=== PATIENT | female | born 1970 | race Caucasian/White ===

== ENCOUNTER 2016-06-07 00:17 | Emergency (ER) | payer MEDICARE, OTHER ==
--- NOTE | 2016-06-07 02:26 | ED ---
General Adult HPI - General Chief complaint: Abdominal Pain Stated complaint: Blood in Stool Time Seen by Provider: 06/07/16 01:19 Source: patient, RN notes reviewed Mode of arrival: ambulatory Limitations: no limitations - History of Present Illness Initial comments: This is a 46-year-old female presents with rectal bleeding that started tonight. Patient states she sometimes just has bright red blood that comes out of the rectum. Patient states is never happened to her before. Patient states she has some suprapubic abdominal pain but this is mild. Patient states her abdominal pain is relieved after she has a bowel movement. Patient states her bowel movements have been normal for her and she denies any diarrhea, nausea or vomiting. Patient denies any fever/chills, cough, congestion, shortness of breath. Patient denies any recent chest pain, abdominal pain, back pain, numbness, tingling, hematuria, headache, or visual changes, or any other complaints. - Related Data Home Medications Medication Instructions Recorded Confirmed Pantoprazole Sodium 40 mg PO QAM 06/30/14 06/07/16 levETIRAcetam [Keppra] 1,000 mg PO Q12HR 06/30/14 06/07/16 Venlafaxine HCl [Effexor XR] 75 mg PO QAM 09/04/15 06/07/16 Previous Rx's Medication Instructions Recorded Albuterol Inhaler [Ventolin Hfa 1 - 2 puff INHALATION Q4-6H PRN #1 01/19/16 Inhaler] inhaler Ciprofloxacin HCl [Cipro] 250 mg PO Q12HR 10 Days 06/07/16 metroNIDAZOLE [Flagyl] 500 mg PO TID 10 Days 06/07/16 Allergies Allergy/AdvReac Type Severity Reaction Status Date / Time Penicillins Allergy Severe Rash/Hives Verified 06/07/16 00:23 Review of Systems ROS Statement: Those systems with pertinent positive or pertinent negative responses have been documented in the HPI. ROS Other: All systems not noted in ROS Statement are negative. Past Medical History Past Medical History: Osteoarthritis (OA), Seizure Disorder, Sleep Apnea/CPAP/ BIPAP Additional Past Medical History / Comment(s): Last seizure 09/18/09, MERVIN has CPAP but has not worn in about 1 1/2 yrs due to needing a new filter, SSS requiring pacemaker, arthritis in back-back pain, recent L groin boil with lancing and packing. History of Any Multi-Drug Resistant Organisms: None Reported Past Surgical History: Adenoidectomy, Section, Pacemaker, Tonsillectomy , Tubal Ligation Additional Past Surgical History / Comment(s): 07/13/06 tilt table test, D&C, C- Sections x 4, pilonidial cyst removed. Past Anesthesia/Blood Transfusion Reactions: No Reported Reaction Type of Cardiac Device: Permanent Pacemaker Device Placement Date:: 07/14/06 Past Psychological History: Depression Additional Psychological History / Comment(s): Pt resides alone. She is independent. She drives. Smoking Status: Current every day smoker Past Alcohol Use History: None Reported Additional Past Alcohol Use History / Comment(s): Pt states she started smoking in 1998 and is less than a ppd smoker. Past Drug Use History: None Reported - Past Family History Father Family Medical History: Coronary Artery Disease (CAD) Additional Family Medical History / Comment(s): Father had heart problems and a pacemaker. He at age 77yrs. Mother Family Medical History: Diabetes Mellitus Additional Family Medical History / Comment(s): Mother is 73 yrs old General Exam - General Exam Comments Initial Comments: General: The patient is awake and alert, in no distress, and does not appear acutely ill. Eye: Pupils are equal, round and reactive to light, extra-ocular movements are intact. No nystagmus. There is normal conjunctiva bilaterally. No signs of icterus. Ears: TMs pink and pearly with intact cone of light bilaterally. Normal external ear canals Nose: Nasal turbinates pink and moist Mouth and throat: There are moist mucous membranes and no oral lesions. Neck: The neck is supple, there is no tenderness or JVD. Cardiovascular: There is a regular rate and rhythm. No murmur, rub or gallop is appreciated. Respiratory: Lungs are clear to auscultation, respirations are non-labored, breath sounds are equal. No wheezes, stridor, rales, or rhonchi. Gastrointestinal: Soft, non-distended, non-tender abdomen without masses or organomegaly noted. There is no rebound or guarding present. No CVA tenderness. Bowel sounds are unremarkable. Rectal: External hemorrhoids present that are tender. No stool in the rectal vault. No blood noted in the rectal vault. No active bleeding. Musculoskeletal: Normal ROM, no tenderness. Strength 5/5. Sensation intact. Radial Pulses equal bilaterally 2+. Neurological: A&O x 3. CN II-XII intact, There are no obvious motor or sensory deficits. Coordination appears grossly intact. Speech is normal. Skin: Skin is warm and dry and no rashes or lesions are noted. Psychiatric: Cooperative, appropriate mood & affect, normal judgment. Limitations: no limitations Course Vital Signs 06/07/16 06/07/16 06/07/16 00:21 02:33 05:04 Temperature 98.1 F 99.7 F H 97 F L Pulse Rate 79 64 78 Respiratory 18 16 16 Rate Blood Pressure 134/93 116/60 119/71 O2 Sat by Pulse 94 L 99 97 Oximetry Medical Decision Making - Medical Decision Making Is a 46-year-old female presents with chief complaint rectal bleeding. On physical exam external hemorrhoids are noted the rectum. There is no blood in the rectal vault, there is no stool in the rectal vault. Patient has pain with rectal exam. Abdomen is soft, nontender nondistended. No guarding or rigidity. Labs were done and reviewed. Elevated white count noted. Patient has a low-grade fever. Occult blood was positive. Upon reexamination patient developed mild generalized tenderness to the abdomen. At this time a CT with contrast was done and reviewed showing: #1 suspected diffuse colitis changes involving transverse, descending and rectosigmoid colon with possible ulcerative colitis changes. Clinical correlation is recommended. #2 stable 3.4 cm left adrenal mass probably related to adrenal adenoma. #3 benign-appearing cysts and liver. #4 contracted gallbladder. Discussed results patient. Discussed the patient will be on a course of antibiotics. I discussed Tylenol or Motrin as needed for any pain. I discussed return parameters. Discussed that patient should follow-up with gastroenterology.Discussed that patient should follow up with PCP in one to 2 days or return to the [facility] for any worsening symptoms or for any further concerns. Patient was receptive to this plan and patient will be discharged home. I discussed his case with attending physician Dr. Wiley who agrees the plan as stated above. - Lab Data Result diagrams: 06/07/16 02:30 06/07/16 02:30 Lab Results 06/07/16 06/07/16 06/07/16 Range/Units 02:19 02:30 02:30 WBC 14.7 H (3.8-10.6) k/uL RBC 5.34 (3.80-5.40) m/uL Hgb 11.9 (11.4-16.0) gm/dL Hct 39.0 (34.0-46.0) % MCV 73.1 L (80.0-100.0) fL MCH 22.2 L (25.0-35.0) pg MCHC 30.4 L (31.0-37.0) g/dL RDW 15.6 H (11.5-15.5) % Plt Count 289 (150-450) k/uL Neutrophils % 76 % Lymphocytes % 16 % Monocytes % 5 % Eosinophils % 2 % Basophils % 0 % Neutrophils # 11.1 H (1.3-7.7) k/uL Lymphocytes # 2.4 (1.0-4.8) k/uL Monocytes # 0.7 (0-1.0) k/uL Eosinophils # 0.2 (0-0.7) k/uL Basophils # 0.0 (0-0.2) k/uL Hypochromasia Marked Microcytosis Slight Sodium 143 (137-145) mmol/L Potassium 3.7 (3.5-5.1) mmol/L Chloride 107 (98-107) mmol/L Carbon Dioxide 23 (22-30) mmol/L Anion Gap 13 mmol/L BUN 12 (7-17) mg/dL Creatinine 0.60 (0.52-1.04) mg/dL Est GFR (MDRD) Af Amer >60 (>60 ml/min/1.73 sqM) Est GFR (MDRD) Non-Af >60 (>60 ml/min/1.73 sqM) Glucose 116 H (74-99) mg/dL Calcium 10.3 H (8.4-10.2) mg/dL Total Bilirubin 0.2 (0.2-1.3) mg/dL AST 23 (14-36) U/L ALT 26 (9-52) U/L Alkaline Phosphatase 108 (38-126) U/L Total Protein 7.5 (6.3-8.2) g/dL Albumin 4.2 (3.5-5.0) g/dL Urine Color Urine Appearance (Clear) Urine pH (5.0-8.0) Ur Specific Lawrence (1.001-1.035) Urine Protein (Negative) Urine Glucose (UA) (Negative) Urine Ketones (Negative) Urine Blood (Negative) Urine Nitrate (Negative) Urine Bilirubin (Negative) Urine Urobilinogen (<2.0) mg/dL Ur Leukocyte Esterase (Negative) Urine RBC (0-5) /hpf Urine WBC (0-5) /hpf Ur Squamous Epith Cells (0-4) /hpf Urine Mucus (None) /hpf Stool Occult Blood Positive H (Negative) 06/07/16 Range/Units 02:30 WBC (3.8-10.6) k/uL RBC (3.80-5.40) m/uL Hgb (11.4-16.0) gm/dL Hct (34.0-46.0) % MCV (80.0-100.0) fL MCH (25.0-35.0) pg MCHC (31.0-37.0) g/dL RDW (11.5-15.5) % Plt Count (150-450) k/uL Neutrophils % % Lymphocytes % % Monocytes % % Eosinophils % % Basophils % % Neutrophils # (1.3-7.7) k/uL Lymphocytes # (1.0-4.8) k/uL Monocytes # (0-1.0) k/uL Eosinophils # (0-0.7) k/uL Basophils # (0-0.2) k/uL Hypochromasia Microcytosis Sodium (137-145) mmol/L Potassium (3.5-5.1) mmol/L Chloride (98-107) mmol/L Carbon Dioxide (22-30) mmol/L Anion Gap mmol/L BUN (7-17) mg/dL Creatinine (0.52-1.04) mg/dL Est GFR (MDRD) Af Amer (>60 ml/min/1.73 sqM) Est GFR (MDRD) Non-Af (>60 ml/min/1.73 sqM) Glucose (74-99) mg/dL Calcium (8.4-10.2) mg/dL Total Bilirubin (0.2-1.3) mg/dL AST (14-36) U/L ALT (9-52) U/L Alkaline Phosphatase (38-126) U/L Total Protein (6.3-8.2) g/dL Albumin (3.5-5.0) g/dL Urine Color Yellow Urine Appearance Cloudy H (Clear) Urine pH 5.5 (5.0-8.0) Ur Specific Lawrence 1.021 (1.001-1.035) Urine Protein Negative (Negative) Urine Glucose (UA) Negative (Negative) Urine Ketones Negative (Negative) Urine Blood Negative (Negative) Urine Nitrate Negative (Negative) Urine Bilirubin Negative (Negative) Urine Urobilinogen <2.0 (<2.0) mg/dL Ur Leukocyte Esterase Negative (Negative) Urine RBC 3 (0-5) /hpf Urine WBC 4 (0-5) /hpf Ur Squamous Epith Cells 3 (0-4) /hpf Urine Mucus Few H (None) /hpf Stool Occult Blood (Negative) Disposition Clinical Impression: Colitis, GI bleed Disposition: HOME SELF-CARE Condition: Good Instructions: Colitis (ED) Additional Instructions: Please use medication as discussed. Please finish entire course of antibiotics. Please follow-up with gastroenterology. Please follow-up with family doctor in the next 2 days of symptoms have not improved. Please return to emergency room if the symptoms increase or worsen or for any other concerns. Prescriptions: Ciprofloxacin HCl [Cipro] 250 mg PO Q12HR 10 Days metroNIDAZOLE [Flagyl] 500 mg PO TID 10 Days Referrals: April Mccullough MD [Primary Care Provider] - 1-2 days Josiah Wang MD [STAFF PHYSICIAN] - 1-2 days Time of Disposition: 04:41
[2016-06-07 02:35] VITALS: RESP 16
[2016-06-07 02:42] LABS: Basophils % (A) 0 %; CH 21.9; Eosinophils # (A) 0.2 k/uL (0-0.7); Eosinophils % (A) 2 %; HDW 3.25; HGB 11.9 gm/dL (11.4-16.0); Hypochromasia Marked; Luc % (Auto) 1; Lymphocytes # (A) 2.4 k/uL (1.0-4.8); Lymphocytes % (A) 16 %; MCH 22.2 pg (25.0-35.0); MCHC 30.4 g/dL (31.0-37.0); MCV 73.1 fL (80.0-100.0); Mean Platelet Volume 6.5; Microcytosis Slight; Monocytes # (A) 0.7 k/uL (0-1.0); Monocytes % (A) 5 %; Neutrophils # (A) 11.1 k/uL (1.3-7.7); Neutrophils % (A) 76 %; RBC 5.34 m/uL (3.80-5.40); RDW 15.6 % (11.5-15.5); WBC 14.7 k/uL (3.8-10.6); WBC (Perox) 15.05
[2016-06-07 02:46] LABS: Appearance,Urine Cloudy (Clear); Bilirubin,Urine Negative (Negative); Glucose,Urine (UA) Negative (Negative); Ketones,Urine Negative (Negative); Leukocyte Esterase,Urine Negative (Negative); Mucus,Urine Few /hpf; Nitrite,Urine Negative (Negative); PH, Urine 5.5 (5.0-8.0); Particle Count 3491; Protein,Urine Negative (Negative); RBC,Urine 3 /hpf (0-5); Specific Gravity,Urine 1.021 (1.001-1.035); Squamous Epithelial Cell,Urine 3 /hpf (0-4); UA Billing (MACRO vs. MICRO) MICRO; Urobilinogen,Urine <2.0 mg/dL (<2.0); WBC,Urine 4 /hpf (0-5)
[2016-06-07 02:51] LABS: ALT 26 U/L (9-52); AST 23 U/L (14-36); Alkaline Phosphatase 108 U/L (38-126); Anion Gap 13 mmol/L; Blood Urea Nitrogen 12 mg/dL (7-17); Calcium 10.3 mg/dL (8.4-10.2); Carbon Dioxide 23 mmol/L (22-30); Chloride 107 mmol/L (98-107); Glucose 116 mg/dL (74-99); Non-African American GFR(MDRD) >60 (>60 ml/min/1.73 sqM); Potassium 3.7 mmol/L (3.5-5.1); Sodium 143 mmol/L (137-145); Total Bilirubin 0.2 mg/dL (0.2-1.3); Total Protein 7.5 g/dL (6.3-8.2)
[2016-06-07] MEDS ORDERED: RX INFO: IV CONTRAST WAS GIVEN 1 EACH MISC MISCELLANE PRN (03:28)
--- NOTE | 2016-06-07 04:24 | CT ---
EXAMINATION TYPE: CT abdomen pelvis w con DATE OF EXAM: 06/07/2016 3:55 AM COMPARISON: 03/12/2016. HISTORY: blood in stool, history of left adrenal mass CT DLP: 1055.70 mGycm Automated exposure control for dose reduction was used. TECHNIQUE: Helical acquisition of images was performed from the lung bases through the pelvis. CONTRAST: Performed without Oral Contrast and with IV Contrast, patient injected with 100 mL of Omnipaque 300. FINDINGS: LUNG BASES: Mild left basilar lung atelectasis and scarring is suggested. LIVER/GB: Benign-appearing cysts are noted in the liver one of the cyst measuring 11 mm in the axial image 13. Gallbladder is contracted. PANCREAS: No significant abnormality is seen. SPLEEN: No significant abnormality is seen. ADRENALS: Right adrenal gland appears unremarkable. There is stable 3.4 cm hypodense mass in the left adrenal gland most likely representing a benign adr enal adenoma. KIDNEYS: No significant abnormality is seen. RETROPERITONEAL ADENOPATHY: None visualized REPRODUCTIVE ORGANS: Uterus is prominent in size with thickened endometrium. Involuting cyst is noted in the right ovary measuring 1.8 cm in the axial image 64. URINARY BLADDER: No significant abnormality is seen. Urinary bladder is not well distended. PELVIC ADENOPATHY: None visualized. OSSEOUS STRUCTURES: No significant abnormality is seen. BOWEL: There is diffuse mucosal thickening in the rectosigmoid colon as seen in the axial image 67. The transverse and descending colon also showed diffuse mucosal wall thickening probably related to d iffuse colitis or ulcerative colitis changes. Cecum and ascending colon showed mild to moderate fecal material and contrast. OTHER: IMPRESSION: 1. SUSPECTED DIFFUSE COLITIS CHANGES INVOLVING TRANSVERSE, DESCENDING AND RECTOSIGMOID COLON WITH POS SIBLE ULCERATIVE COLITIS CHANGES. CLINICAL CORRELATION IS RECOMMENDED. 2. STABLE 3.4 CM LEFT ADRENAL MASS PROBABLY RELATED TO ADRENAL ADENOMA. 3. BENIGN-APPEARING CYSTS IN THE LIVER. 4. Contracted gallbladder.
[2016-06-07 05:04] VITALS: BP 119/71; PULSE 78; TEMP 97
== END 2016-06-07 05:04 | disposition home or self-care (01) ==
LOC: EC 00:17
DX: K52.9 Noninfective gastroenteritis and colitis, unspecified (principal); K64.4 Residual hemorrhoidal skin tags; G40.909 Epilepsy, unspecified, not intractable, without status epilepticus; F32.9 Major depressive disorder, single episode, unspecified; Z79.899 Other long term (current) drug therapy; Z88.0 Allergy status to penicillin; G47.30 Sleep apnea, unspecified; Z99.89 Dependence on other enabling machines and devices; Z95.0 Presence of cardiac pacemaker; F17.200 Nicotine dependence, unspecified, uncomplicated; E27.9 Disorder of adrenal gland, unspecified; K76.89 Other specified diseases of liver
CPT/HCPCS: 36415; 80053; 85025; 82272; 81001; 87086; 74177; 99284; Q9967

== ENCOUNTER → 2016-07-09 | Outpatient (CLI) | payer MEDICARE, OTHER ==
[2016-07-09 10:05] LABS: Anisocytosis Slight; Basophils # (A) 0.1 k/uL (0-0.2); Basophils % (A) 1 %; CH 22.2; CHCM 30.1; Eosinophils # (A) 0.1 k/uL (0-0.7); Eosinophils % (A) 1 %; HCT 39.1 % (34.0-46.0); HGB 11.8 gm/dL (11.4-16.0); Hypochromasia Marked; Luc # (Auto) 0.18; Luc % (Auto) 3; Lymphocytes # (A) 1.9 k/uL (1.0-4.8); Lymphocytes % (A) 27 %; MCH 22.4 pg (25.0-35.0); MCHC 30.2 g/dL (31.0-37.0); MCV 74.2 fL (80.0-100.0); Mean Platelet Volume 7.1; Microcytosis Moderate; Monocytes # (A) 0.3 k/uL (0-1.0); Monocytes % (A) 5 %; Neutrophils # (A) 4.5 k/uL (1.3-7.7); Neutrophils % (A) 64 %; RBC 5.27 m/uL (3.80-5.40); RDW 17.2 % (11.5-15.5); WBC (Perox) 7.75
[2016-07-09 10:14] LABS: ALT 23 U/L (9-52); AST 20 U/L (14-36); Alkaline Phosphatase 92 U/L (38-126); Anion Gap 10 mmol/L; Blood Urea Nitrogen 15 mg/dL (7-17); Calcium 9.5 mg/dL (8.4-10.2); Carbon Dioxide 25 mmol/L (22-30); Chloride 108 mmol/L (98-107); Cholesterol 197 mg/dL (<200); Glucose 89 mg/dL (74-99); HDL Cholesterol 46 mg/dL (40-60); Non-African American GFR(MDRD) >60 (>60 ml/min/1.73 sqM); Potassium 4.5 mmol/L (3.5-5.1); Sodium 143 mmol/L (137-145); Total Bilirubin 0.4 mg/dL (0.2-1.3); Total Protein 7.4 g/dL (6.3-8.2); Triglycerides 188 mg/dL (<150)
[2016-07-09 11:07] LABS: Hemoglobin A1C 5.4 % (4.2-6.1)
== END | disposition home or self-care (01) ==
LOC: LABWHC1 09:10
PROVIDERS: ATTEND Family Medicine
DX: E11.9 Type 2 diabetes mellitus without complications (principal)
CPT/HCPCS: 36415; 80053; 80061; 82043; 83036; 84443; 85025

== ENCOUNTER 2016-08-24 10:39 | Day surgery (SDC) | payer MEDICARE, OTHER ==
[2016-08-24 10:57] VITALS: RESP 16; TEMP 97.4
[2016-08-24] MEDS ORDERED: LACTATED RINGERS 1,000 ML IV SCH (10:57)
[2016-08-24] MEDS ORDERED: LIDOCAINE 1% 20 ML VIAL (10MG/ML) FOR IV START INTRADERMA PRN (10:57)
[2016-08-24] MEDS ORDERED: MIDAZOLAM 2 MG/2 ML VIAL ONE (11:31)
[2016-08-24] MEDS ORDERED: fentaNYL (PF) 50 MCG/ML 2 ML AMP ONE (11:31)
[2016-08-24] MEDS ORDERED: PROPOFOL 10 MG/ML 20 ML VIAL IV ONE (11:31)
--- NOTE | 2016-08-24 12:25 | P.PCN ---
Date of Procedure: 08/24/16 Procedure(s) Performed: Procedure: 1. Esophagogastroduodenoscopy and biopsy. 2. Total colonoscopy. Preoperative diagnosis: Rectal bleeding, abnormal CT and chronic reflux. Patient has history of ulcers in the past. Postoperative diagnosis: 1. Very small sliding hiatal hernia with no obvious esophagitis or complicated reflux disease. 2. Mild gastritis with no ulcers or gastric outlet obstruction. 3. Low-grade internal hemorrhoids, otherwise exam of the colon and terminal ileum within normal limits. Preparation: HalfLytely prep. Sedation: Was provided by anesthesia. Brief clinical history: The patient is a 46-year-old female who I have evaluated in the office last month for the above complaints. The patient had an episode of rectal bleeding around the middle of May for which she went to the emergency room and was treated with antibiotics for colitis based on CT findings. The patient has done well since. The patient has chronic reflux and history of ulcers. This evaluation is recommended to rule out inflammatory bowel disease, peptic ulcer disease or other pathology. Procedure: With the patient on her left lateral decubitus position and after informed consent and adequate sedation, I passed the Olympus-GIF 160 video upper endoscope through the cricopharyngeus down the esophagus. GE junction was around 38 cm from the incisors. It was irregular but I did not see any evidence of Loredo's esophagus. There was a very small sliding hiatal hernia 1 cm or so in size or less. There were no strictures. No evidence of esophagitis. The endoscope was then passed into the stomach which was insufflated with air and inspected in detail including the retroflex view in the cardia. There was some minimal mottling and erythema in the antrum but no ulcers or erosions. Pyloric channel, duodenal bulb, post bulbar area and descending duodenum did not show any obvious abnormalities other than mild erythema. I obtained biopsies from the duodenum, antrum and esophagus then the endoscope was withdrawn and I proceeded with the colonoscopy. Perianal area did not show any fissures or fistulas. There were no masses felt on digital rectal examination. The Olympus CFQ 160L video colonoscope was then inserted in the rectum in the usual fashion and advanced to the cecum. I intubated the ileocecal valve and examined the terminal ileum. The mucosa appeared healthy. No polyps or tumors were seen or any obvious diverticular disease or other pathology. I retroflexed endoscope in the rectum before the endoscope was withdrawn, low-grade internal hemorrhoids were noted but there was no bleeding. The patient tolerated the procedure well. Plan: The patient was reassured. Discussed dietary measures and local care for hemorrhoids. Will await biopsy results and make further plans based on her course. Would keep you updated on her progress.
[2016-08-24 12:27] VITALS: BP 102/69; PULSE 66
== END 2016-08-24 13:11 | disposition home or self-care (01) ==
LOC: ORWHC2ENDO 10:39
DX: K29.50 Unspecified chronic gastritis without bleeding (principal); K21.0 Gastro-esophageal reflux disease with esophagitis; K44.9 Diaphragmatic hernia without obstruction or gangrene; K64.8 Other hemorrhoids; Z87.19 Personal history of other diseases of the digestive system; G47.33 Obstructive sleep apnea (adult) (pediatric); I49.5 Sick sinus syndrome; Z95.0 Presence of cardiac pacemaker; I49.9 Cardiac arrhythmia, unspecified; M19.90 Unspecified osteoarthritis, unspecified site; F32.9 Major depressive disorder, single episode, unspecified; G40.909 Epilepsy, unspecified, not intractable, without status epilepticus; Z79.899 Other long term (current) drug therapy; Z88.0 Allergy status to penicillin; F17.200 Nicotine dependence, unspecified, uncomplicated
CPT/HCPCS: 81025; 88305; 88342; 45378; 43239; J2250; J3010; J2704

== ENCOUNTER 2017-03-22 06:02 | Day surgery (SDC) | payer MEDICARE, OTHER ==
[2017-03-19 11:53] VITALS: BMI 35.9
[~2017-03-22 06:02] MED LIST: CLINDAMYCIN 600 MG in SODIUM CHLORIDE 0.9% IRRIGATIO 250 ML IRRIGATION ONE; CLINDAMYCIN 900 MG in DEXTROSE 5% IN WATER 50 ML IVPB ONE
[2017-03-22] MEDS: SODIUM CHLORIDE 0.9% 1,000 ML IV SCH ×2 (06:40→12:55)
[2017-03-22] MEDS ORDERED: SODIUM CHLORIDE 0.9% 500 ML IV ONE (06:40)
[2017-03-22] MEDS ORDERED: fentaNYL (PF) 50 MCG/ML 2 ML AMP ONE ×2 (07:20→08:42)
[2017-03-22] MEDS ORDERED: MIDAZOLAM 2 MG/2 ML VIAL ONE ×2 (07:20→08:19)
[2017-03-22] MEDS ORDERED: IV FLUID CONTINUATION 400 ML IV ONE (07:22)
[2017-03-22] MEDS: MIDAZOLAM 2 MG/2 ML VIAL IV ONE ×4 (08:00→08:37)
[2017-03-22] MEDS: fentaNYL (PF) 50 MCG/ML 2 ML AMP IV ONE ×2 (08:13→08:25)
[2017-03-22] MEDS ORDERED: LIDOCAINE 1% INJ 10MG/ML (20 ML MDV) SQ ONE (08:17)
[2017-03-22] MEDS ORDERED: LIDOCAINE 2% INJ 20 MG/ML SQ ONE (08:30)
[2017-03-22] MEDS: LIDOCAINE 2% INJ 20 MG/ML SQ ONE ×2 (08:36→08:46)
[2017-03-22] MEDS ORDERED: fentaNYL (PF) 50 MCG/ML 2 ML AMP IV ONE (08:45)
--- NOTE | 2017-03-22 09:43 | P.PCN ---
Preoperative Diagnosis: Patient underwent EP procedure under conscious sedation/moderate sedation, monitoring of the level of consciousness and physiologic parameters including but not limited to vital signs and oxygenation. Patient tolerated the procedure well without any acute complications. Start time: 8 AM Stop time: 9:04 AM Condition: stable Disposition: observation
[2017-03-22] MEDS ORDERED: ACETAMINOPHEN TAB 325 MG TAB PO PRN (09:49)
[2017-03-22] MEDS ORDERED: ACETAMINOPHEN IV (For NPO) 1,000 MG in EMPTY BAG 1 BAG IVPB ONE (09:49)
--- NOTE | 2017-03-22 10:11 | CE ---
CARDIAC ELECTROPHYSIOLOGY REPORT A 47-year-old female, who had a permanent pacemaker implanted in [place] for syncope and a long pause on tilt table test. She is in here for a pacemaker generator change. Her pacemaker generator is at [place] from normal battery depletion. Patient is brought to the EP lab in a fasting state. Written informed consent was obtained prior to the procedure. The right shoulder was prepped and draped as per protocol. Fluoroscopy of the generator and the leads was performed. No fractures or breaks were noted. An incision was made directly over the generator and carried down to the level of the generator. The generator was explanted. Partial capsulectomy was performed. A new generator was implanted. The old generator was a [employer] model #5366, serial #[id number] that was originally implanted in July 14, 2006. The new generator was a [employer] model number SL3879, serial #[id number]. Chronic atrial lead was a [employer], model #1688TC, 46 cm in length and serial number [id number]. P-waves of 4.7 mV, pacing impedance of 410 ohms. Pacing threshold 1V at 0.4 millisecond. The RV lead was a [employer], model #1646T, 52 cm length and serial number [id number]. R waves were 5 mV, pacing impedance 540 ohms,. pacing threshold 1V at 0.4 milliseconds. The device was then programmed to DDD mode at 50 ppm with VIP mode turned on. The wound was then closed and was washed and closed in 3 layers per protocol. RESULTS: Successful dual chamber pacemaker generator change. Pacemaker leads functioning normally. MMODL / IJN: [id number] /
[2017-03-22] MEDS: CLINDAMYCIN 900 MG in DEXTROSE 5% IN WATER 50 ML IVPB SCH ×6 (10:48→22:10)
[2017-03-22 20:07] VITALS: RESP 18
[2017-03-22] MEDS: levETIRAcetam 500 MG TAB PO SCH (20:47)
[2017-03-22] MEDS: HYDROcodone/APAP 5-325MG 1 EACH TAB PO PRN (21:43)
[2017-03-23] MEDS: HYDROcodone/APAP 5-325MG 1 EACH TAB PO PRN (03:54)
[2017-03-23] MEDS: CLINDAMYCIN 900 MG in DEXTROSE 5% IN WATER 50 ML IVPB SCH ×2 (03:56)
[2017-03-23] MEDS ORDERED: PANTOPRAZOLE 40 MG TABLET PO SCH (07:30)
--- NOTE | 2017-03-23 07:55 | XR ---
EXAMINATION TYPE: XR chest 2V DATE OF EXAM: 03/23/2017 COMPARISON: 01/19/2016 HISTORY: 39 year-old female the placement check TECHNIQUE: Frontal and lateral views FINDINGS: Heart upper limits of normal in size. Aorta and pulmonary vasculature within normal limits. Some stra ndy atelectasis in the lower lungs. Right anterior chest wall pacemaker generator with right atrial a nd right ventricular leads. No consolidation or pleural effusion. IMPRESSION: Right-sided pacemaker generator with a right atrial and right ventricular leads. Some strandy lower l ludmila areas of atelectasis. No acute cardiopulmonary process.
--- NOTE | 2017-03-23 08:18 | P.DS ---
Providers Attending physician: Torsten Gallegos Primary care physician: [facility] Course: Patient is doing well. She is resting comfortably in bed. She did to the bathroom. No dizziness or lightheadedness or shortness of breath minimal discomfort in the pacemaker generator change area. The wound is healing well there is no hematoma there is no soakage Heart sounds are normal normal S1 normal S2 Breath sounds are clear no rhonchi no crackles Abdomen soft nontender Extremities warm no edema Temperature 97.9F, pulse rate in the 60s, respirations 18, blood pressure 120/ 65 mmHg Impression History of syncope with sick sinus syndrome status post permanent pacemaker implantation at [place] almost 10 years back pacemaker at [facility] and status post pacemaker generator change yesterday successfully a right-sided implant Plan Discharge home after completion of IV antibiotics and follow-up in the device clinic in 5 days and follow with Dr. Ashton in 6 months Patient Condition at Discharge: Stable Plan - Discharge Summary Discharge Rx Participant: No New Discharge Prescriptions: No Action Pantoprazole Sodium 40 mg PO QAM levETIRAcetam [Keppra] 1,000 mg PO Q12HR Venlafaxine HCl [Effexor XR] 150 mg PO QAM Docusate [Colace] 100 mg PO BID PRN PRN Reason: Constipation Butalb/Acetaminophen/Caffeine [Esgic 50-325-40 Capsule] 1 cap PO Q8H PRN PRN Reason: COLE Triamcinolone Acetonide [Nasacort] 1 spray EA NOSTRIL BID PRN PRN Reason: ALLERGY SX Discharge Medication List Pantoprazole Sodium 40 mg PO QAM 06/30/14 [History] levETIRAcetam [Keppra] 1,000 mg PO Q12HR 06/30/14 [History] Venlafaxine HCl [Effexor XR] 150 mg PO QAM 09/04/15 [History] Butalb/Acetaminophen/Caffeine [Esgic 50-325-40 Capsule] 1 cap PO Q8H PRN [History] Docusate [Colace] 100 mg PO BID PRN 03/19/17 [History] Triamcinolone Acetonide [Nasacort] 1 spray EA NOSTRIL BID PRN 03/19/17 [History] Follow up Appointment(s)/Referral(s): Torsten Gallegos MD [STAFF PHYSICIAN] - 1 Week (5 days device clinic 6 months-appointment with Dr. Gallegos)
[2017-03-23] MEDS: levETIRAcetam 500 MG TAB PO SCH (08:24)
[2017-03-23] MEDS ORDERED: VENLAFAXINE HCL ER 150 MG CAP PO SCH (09:00)
[2017-03-23 11:52] VITALS: BP 94/52; PULSE 69; TEMP 98.6
== END 2017-03-23 13:50 | disposition home or self-care (01) ==
LOC: CATHEP 06:02 → 3OBS 09:04 → CATHEP 03-23 13:50
PROVIDERS: ATTEND Internal Medicine Clinical Cardiac Electrophysiology
DX: Z45.010 Encounter for checking and testing of cardiac pacemaker pulse generator [battery] (principal); I49.5 Sick sinus syndrome; I47.2 Ventricular tachycardia; R55 Syncope and collapse; G40.909 Epilepsy, unspecified, not intractable, without status epilepticus; Z87.891 Personal history of nicotine dependence; Z79.899 Other long term (current) drug therapy; Z88.0 Allergy status to penicillin
CPT/HCPCS: 33228; 71020; C1785; J2001 ×2; J2250; J3010

== ENCOUNTER 2017-12-21 15:38 | Emergency (ER) | payer MEDICARE, OTHER ==
--- NOTE | 2017-12-21 16:31 | ED ---
General Adult HPI - General Chief complaint: Upper Respiratory Infection Stated complaint: congestion, cough Time Seen by Provider: 12/21/17 16:22 Source: patient, RN notes reviewed Mode of arrival: ambulatory Limitations: no limitations - History of Present Illness Initial comments: This is a 47-year-old female who presents to the emergency department with chief complaint of cough and congestion. Patient states that she has had a cough for the past 2-3 weeks. She states that she feels like her chest is congested but is not coughing anything up. She states that she is a current, every day smoker. She states she rolls her own cigarettes and smokes approximately 14 per day. She denies any fevers or chills. Denies chest pain or shortness of breath, abdominal pain, nausea or vomiting. Denies runny nose, sore throat or ear pain. - Related Data Home Medications Medication Instructions Recorded Confirmed Pantoprazole Sodium 40 mg PO QAM 06/30/14 03/22/17 levETIRAcetam [Keppra] 1,000 mg PO Q12HR 06/30/14 03/22/17 Venlafaxine HCl [Effexor XR] 150 mg PO QAM 09/04/15 03/22/17 Butalb/Acetaminophen/Caffeine 1 cap PO Q8H PRN 03/19/17 03/22/17 [Esgic 50-325-40 Capsule] Docusate [Colace] 100 mg PO BID PRN 03/19/17 03/22/17 Triamcinolone Acetonide [Nasacort] 1 spray EA NOSTRIL BID PRN 03/19/17 03/22/17 Previous Rx's Medication Instructions Recorded Azithromycin [Zithromax Z-pack] 0 mg PO DIRECTED #6 tab 12/21/17 Allergies Allergy/AdvReac Type Severity Reaction Status Date / Time Penicillins Allergy Severe Rash/Hives Verified 12/21/17 15:59 pollen extracts Allergy SNEEZING Verified 12/21/17 15:59 Review of Systems ROS Statement: Those systems with pertinent positive or pertinent negative responses have been documented in the HPI. ROS Other: All systems not noted in ROS Statement are negative. Past Medical History Past Medical History: Osteoarthritis (OA), Seizure Disorder, Sleep Apnea/CPAP/ BIPAP Additional Past Medical History / Comment(s): Last seizure 09/18/09, MERVIN has CPAP but has not worn in about 1 1/2 yrs due to needing a new filter, SSS requiring pacemaker, arthritis in back-back pain, recent L groin boil with lancing and packing. History of Any Multi-Drug Resistant Organisms: None Reported Past Surgical History: Adenoidectomy, Section, Pacemaker, Tonsillectomy , Tubal Ligation Additional Past Surgical History / Comment(s): 07/13/06 tilt table test, D&C, C- Sections x 4, pilonidial cyst removed. Past Anesthesia/Blood Transfusion Reactions: Motion Sickness Type of Cardiac Device: Permanent Pacemaker Device Placement Date:: 07/14/06 Past Psychological History: Depression Smoking Status: Current every day smoker Past Alcohol Use History: None Reported Past Drug Use History: None Reported - Past Family History Father Family Medical History: Coronary Artery Disease (CAD) Additional Family Medical History / Comment(s): Father had heart problems and a pacemaker. He at age 77yrs. Mother Family Medical History: Diabetes Mellitus Additional Family Medical History / Comment(s): Mother is 73 yrs old General Exam - General Exam Comments Initial Comments: General: Awake and alert, well-developed; in no apparent distress. HEENT: Head atraumatic, normocephalic. Pupils are equal, round and reactive to light. Extraocular movements intact. Oropharynx moist without erythema or exudate. Bilateral TMs are pearly without effusion. Neck: Supple. Normal ROM. Cardiovascular: Regular rate and rhythm. No murmurs, rubs or gallops. Chest symmetrical. Respiratory: Lungs clear to auscultation bilaterally. No wheezes, rales or rhonchi. Normal respiratory effort with no use of accessory muscles. Musculoskeletal: Normal ROM, no tenderness bilateral upper and lower extremities. Ambulating normally. Skin: [place], warm and dry without rashes or lesions. Neurological: Alert and oriented x3. CN II-XII grossly intact. Speech is fluent and answers are appropriate. No focal neuro deficits. Psychiatric: Normal mood and affect. No overt signs of depression or anxiety noted. Limitations: no limitations Course Vital Signs 12/21/17 15:57 Temperature 98.6 F Pulse Rate 86 Respiratory 20 Rate Blood Pressure 115/72 O2 Sat by Pulse 96 Oximetry Medical Decision Making - Medical Decision Making This is a 47-year-old female who presents to the emergency department with chief complaint of cough. Patient is a current, every day smoker. She reports a cough and chest congestion for the past 2-3 weeks. Denies fevers. Denies chest pain or shortness of breath. Chest x-ray revealed no acute abnormalities. Patient will be treated for bronchitis. She will be started on azithromycin. Patient states that she has never taken steroids before and declines. Case was discussed with attending physician, Dr. Cespedes. Patient's vital signs are stable and she is in no acute distress. She will be discharged home at this time. She is in agreement with plan and voices understanding. All questions were answered. - Radiology Data Radiology results: report reviewed Chest x-ray impression: No acute process. Disposition Clinical Impression: Bronchitis Disposition: HOME SELF-CARE Condition: Good Instructions: Acute Bronchitis (ED) Additional Instructions: Please take medications as prescribed. Please follow up with primary care provider within 1-2 days. Return to emergency department if symptoms should worsen or any concerns arise. Prescriptions: Azithromycin [Zithromax Z-pack] 0 mg PO DIRECTED #6 tab Is patient prescribed a controlled substance at d/c from ED?: No Referrals: Latesha Cedillo MD [Primary Care Provider] - 1-2 days Time of Disposition: 17:23
--- NOTE | 2017-12-21 17:09 | XR ---
EXAMINATION: XR chest 2V DATE AND TIME: 12/21/2017 4:39 PM ORDERING PROVIDER: Elda Moreau CLINICAL INDICATION: cough TECHNIQUE: PA and lateral COMPARISON: 03/23/2017 DESCRIPTION: Cardiac pacemaker. The lungs are clear. The pleural spaces are negative. The cardiac silhouette is not enlarged. The mediastinal and pleural silhouettes are unremarkable. The skeletal structures are intact without focal findings. The soft tissues are unremarkable. IMPRESSION: NO ACUTE PROCESS.
[2017-12-21 17:34] VITALS: BP 122/79; PULSE 62; RESP 18; TEMP 98.2
== END 2017-12-21 17:34 | disposition home or self-care (01) ==
LOC: EC 15:38
DX: J40 Bronchitis, not specified as acute or chronic (principal); G40.909 Epilepsy, unspecified, not intractable, without status epilepticus; F32.9 Major depressive disorder, single episode, unspecified; F17.200 Nicotine dependence, unspecified, uncomplicated; Z95.0 Presence of cardiac pacemaker; Z98.51 Tubal ligation status; Z98.890 Other specified postprocedural states; Z79.899 Other long term (current) drug therapy; Z88.0 Allergy status to penicillin; Z91.048 Other nonmedicinal substance allergy status
CPT/HCPCS: 71046; 99283

== ENCOUNTER 2018-01-31 15:06 | Emergency (ER) | payer MEDICARE, OTHER ==
[2018-01-31 15:24] VITALS: BP 110/67; PULSE 74; RESP 20; TEMP 99.5
[2018-01-31] MEDS ORDERED: HYDROcodone/APAP 5-325MG 1 EACH TAB PO STA (16:02)
--- NOTE | 2018-01-31 16:09 | ED ---
General Adult HPI - General Chief complaint: Trauma Stated complaint: rib pain Time Seen by Provider: 01/31/18 15:47 Source: patient, RN notes reviewed Mode of arrival: ambulatory Limitations: no limitations - History of Present Illness Initial comments: 48-year-old female presents to the emergency department for chief complaint of left rib pain 6 days. Patient states that she was bending over the side of her washer to grab something when she felt a sharp pain in her ribs. Patient states pain has been consistent since that time. Patient states pain worsens when she laughs or takes a deep breath. She states it feels better when she holds her body pillow against it. Patient saw her primary care provider for this complaint who recommended Motrin and Tylenol. Patient states that has not been helping. Patient denies any chest pain or shortness of breath. Patient denies any other injuries or falling. Patient denies any abdominal pain. Patient denies any cough. Patient has no other complaints at this time including shortness of breath, chest pain, abdominal pain, nausea or vomiting, headache, or visual changes. - Related Data Home Medications Medication Instructions Recorded Confirmed RX: Pantoprazole Sodium 40 mg PO QAM 06/30/14 03/22/17 RX: levETIRAcetam [Keppra] 1,000 mg PO Q12HR 06/30/14 03/22/17 RX: Venlafaxine HCl [Effexor XR] 150 mg PO QAM 09/04/15 03/22/17 RX: Butalb/Acetaminophen/Caffeine 1 cap PO Q8H PRN 03/19/17 03/22/17 [Esgic 50-325-40 Capsule] RX: Docusate [Colace] 100 mg PO BID PRN 03/19/17 03/22/17 RX: Triamcinolone Acetonide 1 spray EA NOSTRIL BID PRN 03/19/17 03/22/17 [Nasacort] Previous Rx's Medication Instructions Recorded RX: Azithromycin [Zithromax Z-pack] 0 mg PO DIRECTED #6 tab 12/21/17 Allergies Allergy/AdvReac Type Severity Reaction Status Date / Time Penicillins Allergy Severe Rash/Hives Verified 01/31/18 15:24 pollen extracts Allergy SNEEZING Verified 01/31/18 15:24 Review of Systems ROS Statement: Those systems with pertinent positive or pertinent negative responses have been documented in the HPI. ROS Other: All systems not noted in ROS Statement are negative. Past Medical History Past Medical History: Osteoarthritis (OA), Seizure Disorder, Sleep Apnea/CPAP/ BIPAP Additional Past Medical History / Comment(s): Last seizure 09/18/09, MERVIN has CPAP but has not worn in about 1 1/2 yrs due to needing a new filter, SSS requiring pacemaker, arthritis in back-back pain, recent L groin boil with lancing and packing. History of Any Multi-Drug Resistant Organisms: None Reported Past Surgical History: Adenoidectomy, Section, Pacemaker, Tonsillectomy , Tubal Ligation Additional Past Surgical History / Comment(s): 07/13/06 tilt table test, D&C, C- Sections x 4, pilonidial cyst removed. Past Anesthesia/Blood Transfusion Reactions: Motion Sickness Type of Cardiac Device: Permanent Pacemaker Device Placement Date:: 07/14/06 Past Psychological History: Depression Smoking Status: Current every day smoker Past Alcohol Use History: Occasional Past Drug Use History: None Reported - Past Family History Father Family Medical History: Coronary Artery Disease (CAD) Additional Family Medical History / Comment(s): Father had heart problems and a pacemaker. He at age 77yrs. Mother Family Medical History: Diabetes Mellitus Additional Family Medical History / Comment(s): Mother is 73 yrs old General Exam Limitations: no limitations General appearance: alert, in no apparent distress Head exam: Present: atraumatic, normocephalic, normal inspection Eye exam: Present: normal appearance. Absent: scleral icterus, conjunctival injection ENT exam: Present: normal exam, mucous membranes moist Neck exam: Present: normal inspection, full ROM. Absent: tenderness, meningismus, lymphadenopathy Respiratory exam: Present: normal lung sounds bilaterally, chest wall tenderness (Patient has tenderness to the left lower anterior ribs around ribs 8 and 9. Pain is reproducible. minimal erythema around area without stepoff). Absent: respiratory distress, wheezes, rales, rhonchi, stridor Cardiovascular Exam: Present: regular rate, normal rhythm, normal heart sounds. Absent: systolic murmur, diastolic murmur, rubs, gallop, clicks GI/Abdominal exam: Present: soft, normal bowel sounds. Absent: distended, tenderness (No tenderness in the abdomen whatsoever including left upper quadrant.), guarding, rebound, rigid Back exam: Absent: CVA tenderness (R), CVA tenderness (L) Neurological exam: Present: alert, oriented X3, CN II-XII intact Psychiatric exam: Present: normal affect, normal mood Course Vital Signs 01/31/18 15:22 Temperature 99.5 F Pulse Rate 74 Respiratory 20 Rate Blood Pressure 110/67 O2 Sat by Pulse 98 Oximetry Medical Decision Making - Medical Decision Making 48-year-old female with left anterior lower rib pain after bending over the side of a washer 6 days ago. Patient states pain has been consistent since that time. Patient is tender to palpation and pain is reproducible on the left anterior lower ribs around ribs 8 or 9. Patient states it is more painful when she laughs hard or takes a deep breath. She denies chest pain. Patient denies any shortness of breath. X-ray shows no fractures or malalignment. Discussed continuing Motrin and Tylenol and icing the area with patient. Discussed taking deep breaths 10 times every hour to prevent pneumonia. Discussed returning if she has any worsening symptoms or develops cough or abdominal pain. She will follow up with primary care in the next 1-2 days as well. Disposition Clinical Impression: Contusion of rib on left side Disposition: HOME SELF-CARE Condition: Good Instructions: Rib Contusion (ED) Additional Instructions: Please take Motrin and Tylenol for pain. Ice the area. Remember to take 10 deep breaths every hour when awake. Pillow against ribs to help with pain. Please follow up with primary care in 1-2 days. Return to the emergency department if you've any worsening symptoms, cough or fever, shortness of breath , or abdominal pain. Is patient prescribed a controlled substance at d/c from ED?: No Referrals: Latesha Cedillo MD [Primary Care Provider] - 1-2 days Time of Disposition: 18:17
--- NOTE | 2018-01-31 17:47 | XR ---
PROCEDURE: XR ribs LT w pa chest xray 5V DATE AND TIME: 01/31/2018 4:42 PM CLINICAL INDICATION: PHH Pain TECHNIQUE: 5 views total COMPARISON: None FINDINGS: A pacemaker noted. Cardiac silhouette unremarkable. Lungs are clear and the pleural spaces are negative. There is no fracture or malalignment. The soft tissues are unremarkable. IMPRESSION: NO ACUTE PROCESS.
== END 2018-01-31 19:06 | disposition home or self-care (01) ==
LOC: EC 15:06
DX: S20.212A Contusion of left front wall of thorax, initial encounter (principal); G40.909 Epilepsy, unspecified, not intractable, without status epilepticus; G47.33 Obstructive sleep apnea (adult) (pediatric); Z99.89 Dependence on other enabling machines and devices; F32.9 Major depressive disorder, single episode, unspecified; F17.200 Nicotine dependence, unspecified, uncomplicated; Z79.899 Other long term (current) drug therapy; Z88.0 Allergy status to penicillin; Z91.048 Other nonmedicinal substance allergy status; W22.8XXA Striking against or struck by other objects, initial encounter; Y92.009 Unspecified place in unspecified non-institutional (private) residence as the place of occurrence of the external cause
CPT/HCPCS: 99283

== ENCOUNTER 2018-03-04 11:18 | Emergency (ER) | payer MEDICARE, OTHER ==
[2018-03-04 12:07] VITALS: TEMP 98
[2018-03-04] MEDS ORDERED: SODIUM CHLORIDE 0.9% 1,000 ML IV STA (12:47)
--- NOTE | 2018-03-04 12:48 | ED ---
General Adult HPI - General Chief complaint: Extremity Injury, Upper Stated complaint: Arm Pain Time Seen by Provider: 03/04/18 12:32 Source: patient, RN notes reviewed Mode of arrival: ambulatory Limitations: no limitations - History of Present Illness Initial comments: Patient is a 48-year-old female presents emergency room today with chief complaint of feeling dizzy lightheaded with some cramping in the right arm that occurred approximately 15 minutes prior to arrival. She states she felt some cramping in the arm skin dizzy lightheaded. She felt nauseated. She states symptoms lasted 20 minutes and then went away. She states she has no symptoms or any complaint at this time. Patient denies any recent fever, chills, shortness of breath, chest pain, back pain, abdominal pain, dysuria or hematuria , constipation or diarrhea, visual changes, or any other complaints. - Related Data Home Medications Medication Instructions Recorded Confirmed Pantoprazole Sodium 40 mg PO QAM 06/30/14 03/04/18 levETIRAcetam [Keppra] 1,000 mg PO Q12HR 06/30/14 03/04/18 Venlafaxine HCl [Effexor XR] 150 mg PO QAM 09/04/15 03/04/18 Triamcinolone Acetonide [Nasacort] 1 spray EA NOSTRIL BID PRN 03/19/17 03/04/18 Ferrous Sulfate [Feosol] 325 mg PO DAILY 03/04/18 03/04/18 Multivitamins, Thera [Multivitamin 1 tab PO DAILY 03/04/18 03/04/18 (formulary)] Allergies Allergy/AdvReac Type Severity Reaction Status Date / Time Penicillins Allergy Severe Rash/Hives Verified 03/04/18 12:39 pollen extracts Allergy SNEEZING Verified 03/04/18 12:39 Review of Systems ROS Statement: Those systems with pertinent positive or pertinent negative responses have been documented in the HPI. ROS Other: All systems not noted in ROS Statement are negative. Past Medical History Past Medical History: Osteoarthritis (OA), Seizure Disorder, Sleep Apnea/CPAP/ BIPAP Additional Past Medical History / Comment(s): Last seizure 09/18/09, MERVIN has CPAP but has not worn in about 1 1/2 yrs due to needing a new filter, SSS requiring pacemaker, arthritis in back-back pain, recent L groin boil with lancing and packing. History of Any Multi-Drug Resistant Organisms: None Reported Past Surgical History: Adenoidectomy, Section, Pacemaker, Tonsillectomy , Tubal Ligation Additional Past Surgical History / Comment(s): 07/13/06 tilt table test, D&C, C- Sections x 4, pilonidial cyst removed. Past Anesthesia/Blood Transfusion Reactions: Motion Sickness Type of Cardiac Device: Permanent Pacemaker Device Placement Date:: 07/14/06 Past Psychological History: Depression Smoking Status: Current every day smoker Past Alcohol Use History: Occasional Past Drug Use History: None Reported - Past Family History Father Family Medical History: Coronary Artery Disease (CAD) Additional Family Medical History / Comment(s): Father had heart problems and a pacemaker. He at age 77yrs. Mother Family Medical History: Diabetes Mellitus Additional Family Medical History / Comment(s): Mother is 73 yrs old General Exam - General Exam Comments Initial Comments: General: The patient is awake and alert, in no distress, and does not appear acutely ill. Eye: Pupils are equal, round and reactive to light. Extra-ocular movements are intact. No nystagmus. There is normal conjunctiva bilaterally. No signs of icterus. Ears, nose, mouth and throat: There are moist mucous membranes and no oral lesions. Neck: The neck is supple, there is no tenderness or JVD. Cardiovascular: There is a regular rate and rhythm. No murmur, rub or gallop is appreciated. Respiratory: Lungs are clear to auscultation, respirations are non-labored, breath sounds are equal. No wheezes, stridor, rales, or rhonchi. Musculoskeletal: Normal ROM, no tenderness. Sensation intact. Strength 5/5. Radial Pulses equal bilaterally 2+. Neurological: A&O x 3. CN II-XII intact, There are no obvious motor or sensory deficits. Coordination appears grossly intact. Speech is normal. Skin: Skin is warm and dry and no rashes or lesions are noted. Psychiatric: Cooperative, appropriate mood & affect, normal judgment. Limitations: no limitations Course Vital Signs 03/04/18 03/04/18 03/04/18 12:04 13:15 13:16 Temperature 98.0 F Pulse Rate 78 Pulse Rate [ 71 86 [employer] ] Respiratory 18 18 Rate Blood Pressure 116/75 Blood Pressure 116/69 110/74 [Right Arm] O2 Sat by Pulse 97 Oximetry 03/04/18 13:17 Temperature Pulse Rate Pulse Rate [ 84 [employer] ] Respiratory Rate Blood Pressure Blood Pressure 111/68 [Right Arm] O2 Sat by Pulse Oximetry EKG Findings - EKG Comments: EKG Findings:: EKG performed at 1322: Shows normal sinus rhythm at 74 beats per minute. MS interval 126. QRS is 86. QT/QTc is 400/444. No acute ST changes. Medical Decision Making - Medical Decision Making Patient's blood work reviewed and is unremarkable. Patient's beta is asymmetric urine emergency room. She states she had some cramping in the right arm earlier today that lasted approximately 20 minutes and has gone away. She did feel little dizzy and had some nausea associated with it which is gone away she's had no symptoms here for Prilosec vitals are good. Patient is resting comfortably doing well at this time and feels comfortable being discharged felt the family doctor in the next 2 days per she is advised return if any symptoms increase or worsen or for any other concerns. - Lab Data Result diagrams: 03/04/18 13:28 03/04/18 13:28 Lab Results 03/04/18 03/04/18 03/04/18 Range/Units 13:28 13:28 13:28 WBC 9.2 (3.8-10.6) k/uL RBC 4.90 (3.80-5.40) m/uL Hgb 14.7 (11.4-16.0) gm/dL Hct 44.8 (34.0-46.0) % MCV 91.3 (80.0-100.0) fL MCH 30.0 (25.0-35.0) pg MCHC 32.8 (31.0-37.0) g/dL RDW 13.2 (11.5-15.5) % Plt Count 302 (150-450) k/uL Neutrophils % 67 % Lymphocytes % 25 % Monocytes % 4 % Eosinophils % 2 % Basophils % 1 % Neutrophils # 6.2 (1.3-7.7) k/uL Lymphocytes # 2.3 (1.0-4.8) k/uL Monocytes # 0.4 (0-1.0) k/uL Eosinophils # 0.2 (0-0.7) k/uL Basophils # 0.0 (0-0.2) k/uL PT (9.0-12.0) sec INR (<1.2) APTT (22.0-30.0) sec Sodium 139 (137-145) mmol/L Potassium 4.1 (3.5-5.1) mmol/L Chloride 107 (98-107) mmol/L Carbon Dioxide 26 (22-30) mmol/L Anion Gap 6 mmol/L BUN 14 (7-17) mg/dL Creatinine 0.49 L (0.52-1.04) mg/dL Est GFR (CKD-EPI)AfAm >90 (>60 ml/min/1.73 sqM) Est GFR (CKD-EPI)NonAf >90 (>60 ml/min/1.73 sqM) Glucose 97 (74-99) mg/dL Calcium 9.6 (8.4-10.2) mg/dL Total Bilirubin 0.3 (0.2-1.3) mg/dL AST 23 (14-36) U/L ALT 15 (9-52) U/L Alkaline Phosphatase 84 (38-126) U/L Total Creatine Kinase 27 L (30-135) U/L CK-MB (CK-2) 0.6 (0.0-2.4) ng/mL CK-MB (CK-2) Rel Index 2.2 Troponin I <0.012 (0.000-0.034) ng/mL Total Protein 6.9 (6.3-8.2) g/dL Albumin 3.7 (3.5-5.0) g/dL 03/04/18 Range/Units 13:28 WBC (3.8-10.6) k/uL RBC (3.80-5.40) m/uL Hgb (11.4-16.0) gm/dL Hct (34.0-46.0) % MCV (80.0-100.0) fL MCH (25.0-35.0) pg MCHC (31.0-37.0) g/dL RDW (11.5-15.5) % Plt Count (150-450) k/uL Neutrophils % % Lymphocytes % % Monocytes % % Eosinophils % % Basophils % % Neutrophils # (1.3-7.7) k/uL Lymphocytes # (1.0-4.8) k/uL Monocytes # (0-1.0) k/uL Eosinophils # (0-0.7) k/uL Basophils # (0-0.2) k/uL PT 9.5 (9.0-12.0) sec INR 1.0 (<1.2) APTT 26.3 (22.0-30.0) sec Sodium (137-145) mmol/L Potassium (3.5-5.1) mmol/L Chloride (98-107) mmol/L Carbon Dioxide (22-30) mmol/L Anion Gap mmol/L BUN (7-17) mg/dL Creatinine (0.52-1.04) mg/dL Est GFR (CKD-EPI)AfAm (>60 ml/min/1.73 sqM) Est GFR (CKD-EPI)NonAf (>60 ml/min/1.73 sqM) Glucose (74-99) mg/dL Calcium (8.4-10.2) mg/dL Total Bilirubin (0.2-1.3) mg/dL AST (14-36) U/L ALT (9-52) U/L Alkaline Phosphatase (38-126) U/L Total Creatine Kinase (30-135) U/L CK-MB (CK-2) (0.0-2.4) ng/mL CK-MB (CK-2) Rel Index Troponin I (0.000-0.034) ng/mL Total Protein (6.3-8.2) g/dL Albumin (3.5-5.0) g/dL Disposition Clinical Impression: Dizziness Disposition: HOME SELF-CARE Condition: Good Instructions: Dizziness (ED) Additional Instructions: Please use medication as discussed. Please follow-up with family doctor in the next 2 days. Please return to emergency room if the symptoms increase or worsen or for any other concerns. Is patient prescribed a controlled substance at d/c from ED?: No Referrals: Latesha Cedillo MD [Primary Care Provider] - 1-2 days Time of Disposition: 14:50
[2018-03-04 13:47] LABS: Basophils % (A) 1 %; Eosinophils # (A) 0.2 k/uL (0-0.7); Eosinophils % (A) 2 %; HCT 44.8 % (34.0-46.0); HGB 14.7 gm/dL (11.4-16.0); Lymphocytes # (A) 2.3 k/uL (1.0-4.8); Lymphocytes % (A) 25 %; MCHC 32.8 g/dL (31.0-37.0); MCV 91.3 fL (80.0-100.0); Mean Platelet Volume 6.2; Monocytes # (A) 0.4 k/uL (0-1.0); Monocytes % (A) 4 %; Neutrophils # (A) 6.2 k/uL (1.3-7.7); Neutrophils % (A) 67 %; Platelet Count 302 k/uL (150-450); RDW 13.2 % (11.5-15.5); WBC 9.2 k/uL (3.8-10.6)
[2018-03-04 14:00] LABS: ALT 15 U/L (9-52); AST 23 U/L (14-36); Albumin 3.7 g/dL (3.5-5.0); Alkaline Phosphatase 84 U/L (38-126); Anion Gap 6 mmol/L; Blood Urea Nitrogen 14 mg/dL (7-17); Calcium 9.6 mg/dL (8.4-10.2); Carbon Dioxide 26 mmol/L (22-30); Chloride 107 mmol/L (98-107); Glucose 97 mg/dL (74-99); Potassium 4.1 mmol/L (3.5-5.1); Sodium 139 mmol/L (137-145); Total Bilirubin 0.3 mg/dL (0.2-1.3); Total Protein 6.9 g/dL (6.3-8.2)
[2018-03-04 14:04] LABS: Partial Thromboplastin Time 26.3 sec (22.0-30.0); Prothrombin Time 9.5 sec (9.0-12.0)
[2018-03-04 14:09] LABS: Creatine Kinase 27 U/L (30-135)
[2018-03-04 14:22] LABS: Creatine Kinase MB 0.6 ng/mL (0.0-2.4); Troponin I <0.012 ng/mL (0.000-0.034)
[2018-03-04 15:04] VITALS: BP 110/56; PULSE 77; RESP 16
== END 2018-03-04 15:09 | disposition home or self-care (01) ==
LOC: EC 11:18
DX: R42 Dizziness and giddiness (principal); G47.33 Obstructive sleep apnea (adult) (pediatric); G40.909 Epilepsy, unspecified, not intractable, without status epilepticus; F32.9 Major depressive disorder, single episode, unspecified; F17.200 Nicotine dependence, unspecified, uncomplicated; Z79.899 Other long term (current) drug therapy; Z88.0 Allergy status to penicillin; Z91.09 Other allergy status, other than to drugs and biological substances; Z95.0 Presence of cardiac pacemaker
CPT/HCPCS: 36415; 80053; 82550; 82553; 84484; 85025; 85610; 85730; 93005; 99284

== ENCOUNTER → 2018-03-15 | Outpatient (CLI) | payer MEDICARE, OTHER ==
--- NOTE | 2018-03-15 11:19 | CT ---
EXAMINATION TYPE: CT abdomen w con DATE OF EXAM: 03/15/2018 COMPARISON: 06/07/2016 HISTORY: Follow up known left adrenal mass. CT DLP: 1604.1 mGycm CONTRAST: CT scan of the abdomen is performed with Oral Contrast and without and with IV Contrast, patient inj ected with 100 mL of Isovue 300. Adrenal adenoma protocol utilized. FINDINGS: LUNG BASES-: No visible nodule. No infiltrate. LIVER/GB: No calcified gallstones. No space occupying hepatic lesion. Biliary tree is of normal ca liber. Stable benign appearing hepatic cyst. PANCREAS: No inflammation. No distinct mass. SPLEEN: No splenic enlargement. No lesion seen. ADRENALS: 3.4 cm left adrenal mass appears to be stable with regard to size shape and appearance. Une nhanced Hounsfield unit measurement is 6.0 with postcontrast Hounsfield unit measurement of 35. Right adrenal gland has a normal appearance without nodule or mass. KIDNEYS/BLADDER: No hydronephrosis. Bilateral sub-4 mm nonobstructing renal calculi. No distinct karan al mass. Urinary bladder grossly unremarkable. BOWEL: Normal appendix. Normal bowel caliber. No inflammation. LYMPH NODES: No greater than 1cm abdominal or pelvic lymph nodes are appreciated. AORTA: No significant abnormality. OSSEOUS STRUCTURES: No significant abnormality is seen. OTHER: No significant additional abnormality is seen. IMPRESSION: 1. Stable left adrenal mass likely reflecting adrenal adenoma. 2. Nonobstructing nephrolithiasis seen bilaterally. 3. Hepatic cyst
== END ==
LOC: RADCTMAIN 09:03
PROVIDERS: ATTEND Urology
DX: D44.12 Neoplasm of uncertain behavior of left adrenal gland (principal); N20.0 Calculus of kidney; K76.89 Other specified diseases of liver; Z88.0 Allergy status to penicillin; Z91.09 Other allergy status, other than to drugs and biological substances
CPT/HCPCS: 74160; Q9967

== ENCOUNTER 2018-10-21 07:24 | Day surgery (SDC) | payer MEDICARE, OTHER ==
[2018-10-18 10:14] VITALS: BMI 36.5
[2018-10-21] MEDS ORDERED: SODIUM CHLORIDE 0.9% 500 ML 500 ML IV ONE (07:48)
[2018-10-21 07:52] VITALS: TEMP 98.2
[2018-10-21] MEDS ORDERED: fentaNYL (PF) 50 MCG/ML 2 ML AMP ONE (08:02)
[2018-10-21] MEDS: BENZOCAINE SPRAY 1 CAN MUCOUS MEM ONE ×2 (08:15→08:18)
[2018-10-21] MEDS: MIDAZOLAM (PF) 2 MG/2 ML VIAL IV ONE ×2 (08:21→08:23)
[2018-10-21] MEDS: fentaNYL (PF) 50 MCG/ML 2 ML AMP IV ONE ×2 (08:22→08:26)
[2018-10-21] MEDS ORDERED: SODIUM CHLORIDE 0.9% 1,000 ML IV SCH (08:45)
--- NOTE | 2018-10-21 08:46 | P.TEE ---
Indications for Procedure(s): Assessment of ASD/PFO Date of Procedure: 10/21/18 Preoperative Diagnosis: PFO/ASD Postoperative Diagnosis: Small PFO Description of Procedure(s): INDICATION: This is a 48-year-old female who recently had a permanent pacemaker implantation. Apparently transthoracic echo [place] showed evidence of possible second him ASD. Patient is advised to have BRANDON examination for definitive diagnosis CONSENT:. Informed consent was obtained verbally from patient PROCEDURE:, Patient was brought to the lab in a fasting state. Patient was prepped and draped in the usual fashion. Patient was given IV Versed about 2.5 mg and 50 g of fentanyl. The throat was sprayed with Cetacaine. A lubricated Omni probe was introduced no oropharynx was advanced into the esophagus. Multiple views were obtained. Patient tolerated the procedure well FINDINGS:. The aortic valve is tricuspid and function normally. The mitral valve appears to be normal with trace regurgitation. The tricuspid valve appears to be normal. There is a pacemaker wire noted in the right atrium. The left atrial appendage is small and free of any clot. The venous flow in the pulmonary veins appear to be normal. Both atria appear to be normal in size. There is a small floor from left to right suggestive of presence of PFO. Injection of the saline contrast bubbles revealed traversing of the bubble to the left side, again suggestive of presence of PFO. The left ventricular function is reserved. The aorta has mild to moderate plaque IMPRESSION: 1. Small PFO #2. Normal valvular function. #3. Normal chamber sizes #4. Aorta is free of any plaque PLAN: Continue current medical therapy. The patient has any evidence of for TIA, may consider closing PFO
[2018-10-21 08:48] VITALS: RESP 16
[2018-10-21 10:58] VITALS: BP 112/70; PULSE 66
== END 2018-10-21 10:35 | disposition home or self-care (01) ==
LOC: CATHCVL 07:24
PROVIDERS: ATTEND Internal Medicine Cardiovascular Disease
DX: Q21.1 Atrial septal defect (principal); R55 Syncope and collapse; I47.2 Ventricular tachycardia; I49.5 Sick sinus syndrome; Z95.0 Presence of cardiac pacemaker; I47.1 Supraventricular tachycardia; Z72.0 Tobacco use; Z79.899 Other long term (current) drug therapy; Z88.0 Allergy status to penicillin
CPT/HCPCS: 93312; 93320; 93325; 81025; J3010; J2250

== ENCOUNTER → 2018-11-08 | Outpatient (CLI) | payer MEDICARE, OTHER ==
--- NOTE | 2018-11-10 10:13 | MM ---
Reason for exam: screening (asymptomatic). Last mammogram was performed 1 year and 8 months ago. Physical Findings: A clinical breast exam by your physician is recommended on an annual basis and results should be correlated with mammographic findings. MG 3D Screening Mammo W/Cad Bilateral CC and MLO view(s) were taken. Prior study comparison: March 18, 2017, bilateral MG 3d screening mammo w/cad. October 09, 2015, mammogram, performed at [facility]. The breast tissue is heterogeneously dense. This may lower the sensitivity of mammography. No significant changes when compared with prior studies. ASSESSMENT: Benign, BI-RAD 2 RECOMMENDATION: Routine screening mammogram of both breasts in 1 year.
== END | disposition home or self-care (01) ==
LOC: RADMAMWWP 15:41
PROVIDERS: ATTEND Internal Medicine
DX: Z12.31 Encounter for screening mammogram for malignant neoplasm of breast (principal)
CPT/HCPCS: 77063; 77067

== ENCOUNTER → 2019-06-09 | Outpatient (CLI) | payer MEDICARE, OTHER ==
--- NOTE | 2019-06-09 11:12 | CT ---
EXAMINATION TYPE: CT lumbar spine wo con DATE OF EXAM: 06/09/2019 COMPARISON: 09/28/2014 HISTORY: Chronic low back pain CT DLP: 1155.6 mGycm CONTRAST: None TECHNIQUE: CT of the lumbar spine is performed on a spiral scan at 3 mm thick sections . Reconstructed images are performed in the coronal and sagittal planes. FINDINGS: T12-L1: No focal disc herniation or significant disc bulge is evident. No spinal canal stenosis or neural foraminal stenosis is present. L1-L2: No focal disc herniation or significant disc bulge is evident. No spinal canal stenosis or n eural foraminal stenosis is present L2-L3: No focal disc herniation or significant disc bulge is evident. No spinal canal stenosis or n eural foraminal stenosis is present L3-L4: No focal disc herniation or significant disc bulge is evident. No spinal canal stenosis or n eural foraminal stenosis is present L4-L5: There is some central focal bulging with mild to moderate anterior thecal sac compression. No AP spinal canal stenosis is present. Facet hypertrophy is present. Mild foraminal narrowing is presen t. This may be slightly greater on the right. L5-S1: No focal disc herniation or significant disc bulge is evident. No spinal canal stenosis or n eural foraminal stenosis is present. Facet hypertrophy is present. Vertebral alignment appears normal. Facet degenerative changes are present L4-5 L5-S1. No significant interval changes evident. Multiple bilateral nonobstructing renal stones are evident. IMPRESSION: 1. Mild to moderate stable disc bulging L4-5 with mild anterior thecal sac compression. 2. Bilateral nonobstructing renal stones.
== END | disposition home or self-care (01) ==
LOC: RADCTMAIN 08:22
PROVIDERS: ATTEND Nurse Practitioner Acute Care
DX: M51.26 Other intervertebral disc displacement, lumbar region (principal); Z88.0 Allergy status to penicillin
CPT/HCPCS: 72131

== ENCOUNTER → 2019-11-09 | Outpatient (CLI) | payer MEDICARE, OTHER ==
--- NOTE | 2019-11-09 18:40 | CONS ---
CONSULTATION DATE OF SERVICE: 11/09/2019 This patient is a 49-year-old lady who has [facility] for obstructive sleep apnea-hypopnea syndrome. HISTORY OF PRESENT ILLNESS/SLEEP-WAKE EVALUATION: The patient has a history of obstructive sleep apnea and was treated with CPAP. She stopped using her equipment more than 3 years ago. According to the patient, pressure was not correct so she was not able to use it. At present her sleep schedule is from around 1 or 2 a.m. until 7:30 a.m. Sometimes she has problems with falling asleep. No TV in bedroom. She sleeps on the side position and in the chair, with snoring and awakenings from sleep 3 times with nocturia. No history of hypnagogic hallucinations, sleep paralysis or cataplexy. In the morning the patient wakes up tired, falling asleep during the day. She has episodes of depression and sexual dysfunction. [place] Sleepiness Scale is 9. PAST MEDICAL HISTORY: Past medical history is positive for hypertension, sick sinus syndrome, seizure disorder, hyperlipidemia, acid reflux, sinus problems. PAST SURGICAL HISTORY: Permanent pacemaker insertion. SOCIAL HISTORY: The patient is a smoker, about half pack a day. Alcohol consumption none. FAMILY HISTORY: Positive for sick sinus syndrome, diabetes, hypertension. MEDICATIONS: Levetiracetam, venlafaxine, , pantoprazole, ferrous sulfate, meloxicam. REVIEW OF SYSTEMS: Multiple awakenings from sleep, tiredness and sleepiness during the day. PHYSICAL EXAMINATION: GENERAL: A pleasant lady without distress. VITAL SIGNS: BP 123/81, HR 74, RR 16, height 5 feet 2-1/2 inches. Weight 210 pounds. Body mass index 37.8, temperature 98.0, oxygen saturation at room air 94%. HEENT: PERRLA, EOMI. Evaluation of oropharynx showed tongue protrudes midline. Low position of soft palate. NECK: Supple. No JVD. Thyroid is not palpable. Neck measures 16 inches in circumference. LUNGS: Clear to percussion and to auscultation. Good air exchange. No wheezing or rhonchi. HEART: S1, S2 regular. No murmurs, gallops or rubs. ABDOMEN: Obese. EXTREMITIES: No clubbing or cyanosis. ELECTRICAL AND RADIO MECHANIC: Awake, alert, and oriented X3. Cranial nerves 2 to 7 intact. There is no fasciculation or atrophy. noted. No focal deficits observed. IMPRESSION: 1. Snoring, multiple awakenings from sleep with nocturia, small oropharyngeal air space, wide neck, history of obstructive sleep apnea in the past; obstructive sleep apnea-hypopnea syndrome. 2. Obesity with body mass index of 37.8. 3. Hypertension. 4. Sick sinus syndrome, status post permanent pacemaker insertion. 5. Hyperlipidemia. 6. Sinus problems. 7. History of seizure disorder. No recent episode. 8. Acid reflux. PLAN: 1. Polysomnography for evaluation of patient's breathing during sleep. 2. CPAP/BiPAP titration if sleep study confirms obstructive sleep apnea-hypopnea syndrome. 3. Preferable position during sleep on the side. 4. No driving if patient feels any sleepiness. 5. I will see patient for follow up visit to explain results of testing and following plan. Thank you very much for referring this patient for consultation. Sincerely, Leighton Bhatia MD, PhD, FAASM Diplomat of [employer] [facility] [place] MMODL / ABHIN: [id number] /
== END | disposition home or self-care (01) ==
LOC: SLEEP 09:56
PROVIDERS: ATTEND Internal Medicine
DX: R06.83 Snoring (principal); E66.9 Obesity, unspecified; Z68.37 Body mass index [BMI] 37.0-37.9, adult; I10 Essential (primary) hypertension; E78.5 Hyperlipidemia, unspecified; I49.5 Sick sinus syndrome; K21.9 Gastro-esophageal reflux disease without esophagitis; Z95.0 Presence of cardiac pacemaker; J34.89 Other specified disorders of nose and nasal sinuses; F17.210 Nicotine dependence, cigarettes, uncomplicated; Z86.69 Personal history of other diseases of the nervous system and sense organs; Z87.09 Personal history of other diseases of the respiratory system; Z79.1 Long term (current) use of non-steroidal anti-inflammatories (NSAID); Z79.899 Other long term (current) drug therapy
CPT/HCPCS: 99211

== ENCOUNTER → 2020-05-30 | Outpatient (CLI) | payer MEDICARE, OTHER ==
--- NOTE | 2020-05-31 00:03 | CT ---
EXAMINATION TYPE: CT brain cspine wo con DATE OF EXAM: 05/30/2020 COMPARISON: CT brain 08/31/2011 HISTORY: headache, cervicalgia CT DLP: 761.60 mGycm Automated exposure control for dose reduction was used. Exam performed with no contrast. Ventricles have normal size. There is no mass effect nor midline shift. There is no sign of intracran ial hemorrhage. Calvarium is intact. There is no evidence of cerebral edema. There is normal aeration of the mastoid sinuses. There is normal aeration of the paranasal sinuses. Cervical vertebra have normal alignment. Posterior elements are intact. There is no evidence of a fra cture. Disc spaces are fairly normal. Facet joints appear normal. Prevertebral soft tissues appear no rmal. The skull base is intact. IMPRESSION: Normal CT scan of the cervical spine. Normal CT scan of the brain. Brain unchanged compared to old exam.
--- NOTE | 2020-05-31 00:06 | CT ---
EXAMINATION TYPE: CT lumbar spine wo con DATE OF EXAM: 05/30/2020 COMPARISON: 06/09/2019 HISTORY: Low back pain, weakness, tingling CT DLP: 840 mGycm Automated exposure control for dose reduction was used. Images were obtained from the level of T12-S2 vertebra without contrast. The lumbar vertebra have fairly normal spacing and alignment. There is mild spurring of the endplates . There is bilateral L5 spondylolysis without spondylolisthesis. There is no compression fracture. Th ere is no lumbar paraspinal mass. There are multiple calculi in both kidneys and more at the lower po les of both kidneys. There is oval-shaped 3.5 cm low-density left adrenal mass. The sacroiliac joints are intact. Visualized sacrum is intact. IMPRESSION: There is L5 spondylolysis without spondylolisthesis. 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 No fracture. No acute abnormality of the lumbar spine.
== END | disposition home or self-care (01) ==
LOC: RADCTMAIN 16:58
PROVIDERS: ATTEND Psychiatry & Neurology Neurology
DX: M47.816 Spondylosis without myelopathy or radiculopathy, lumbar region (principal); R51.9 Headache, unspecified
CPT/HCPCS: 70450; 72125; 72131

== ENCOUNTER 2020-08-10 12:44 | Emergency (ER) | payer MEDICARE, OTHER ==
[2020-08-10] MEDS ORDERED: SODIUM CHLORIDE 0.9% 1,000 ML IV STA (13:25)
[2020-08-10] MEDS ORDERED: ONDANSETRON 4 MG/2 ML VIAL IVP STA (13:25)
[2020-08-10 14:02] LABS: Basophils % (A) 0 %; Eosinophils % (A) 1 %; HCT 38.2 % (34.0-46.0); Lymphocytes # (A) 0.5 k/uL (1.0-4.8); Lymphocytes % (A) 6 %; MCHC 34.1 g/dL (31.0-37.0); Mean Platelet Volume 6.9; Monocytes # (A) 0.5 k/uL (0-1.0); Monocytes % (A) 6 %; Neutrophils # (A) 7.6 k/uL (1.3-7.7); Neutrophils % (A) 85 %; Platelet Count 178 k/uL (150-450); RBC 4.83 m/uL (3.80-5.40); RDW 14.7 % (11.5-15.5); WBC 8.9 k/uL (3.8-10.6)
[2020-08-10 14:11] LABS: ALT 14 U/L (4-34); AST 32 U/L (14-36); African American GFR (CKD) >90 (>60 ml/min/1.73 sqM); Albumin 3.8 g/dL (3.5-5.0); Alkaline Phosphatase 104 U/L (38-126); Anion Gap 9 mmol/L; Blood Urea Nitrogen 18 mg/dL (7-17); Calcium 9.8 mg/dL (8.4-10.2); Carbon Dioxide 26 mmol/L (22-30); Chloride 97 mmol/L (98-107); Glucose 121 mg/dL (74-99); Lipase 37 U/L (23-300); Non-African American GFR(CKD) >90 (>60 ml/min/1.73 sqM); Potassium 3.8 mmol/L (3.5-5.1); Sodium 132 mmol/L (137-145); Total Bilirubin 0.3 mg/dL (0.2-1.3); Total Protein 6.8 g/dL (6.3-8.2)
[2020-08-10 14:34] LABS: Appearance,Urine Cloudy (Clear); Bacteria,Urine Rare /hpf; Bilirubin,Urine Negative (Negative); Blood,Urine Moderate (Negative); Color,Urine Yellow; Glucose,Urine (UA) Negative (Negative); Hyaline Casts,Urine 1 /lpf (0-2); Ketones,Urine Negative (Negative); Leukocyte Esterase,Urine Small (Negative); Mucus,Urine Moderate /hpf; Nitrite,Urine Negative (Negative); Protein,Urine 3+ (Negative); RBC,Urine 30 /hpf (0-5); Specific Gravity,Urine 1.024 (1.001-1.035); Squamous Epithelial Cell,Urine 4 /hpf (0-4); Urobilinogen,Urine <2.0 mg/dL (<2.0); WBC,Urine 58 /hpf (0-5)
[2020-08-10] MEDS ORDERED: cefTRIAXone IN SWFI 1,000 MG/10 ML SYRINGE IVP STA (14:44)
--- NOTE | 2020-08-10 14:47 | ED ---
General Adult HPI - General Chief complaint: Nausea/Vomiting/Diarrhea Stated complaint: N/V/D, abd pain Source: patient Mode of arrival: ambulatory Limitations: no limitations - History of Present Illness Initial comments: 50-year-old female with past medical history of seizure disorder, sick sinus syndrome with pacemaker who presents to the emergency department with reported n ausea, vomiting, diarrhea and right lower quadrant abdominal pain which radiates around to her right flank. Patient denies any sick contacts or recent travel. States that she thought she was constipated since she drank a bunch of water which then began giving her diarrhea. States that she has had multiple episodes per day which are dark in coloration. No recent antibiotic use. Denies previous history of GI bleeding. Patient on any blood thinners. She admits to a mild nonproductive cough. No chest pain. Mild shortness of breath. States she has had a poor appetite. Denies any changes in her urination. No concern for . No other alleviating, precipitating or modifying factors - Related Data Home Medications Medication Instructions Recorded Confirmed Pantoprazole Sodium 40 mg PO DAILY 06/30/14 08/10/20 levETIRAcetam [Keppra] 1,000 mg PO BID 06/30/14 08/10/20 Venlafaxine HCl [Effexor XR] 150 mg PO QAM 09/04/15 08/10/20 Naproxen [Naprosyn] 500 mg PO BID PRN 08/10/20 08/10/20 Rimegepant Sulfate [Nurtec Odt] 75 mg PO Q48H PRN 08/10/20 08/10/20 Rosuvastatin [Crestor] 10 mg PO DAILY 08/10/20 08/10/20 Previous Rx's Medication Instructions Recorded Cephalexin [Keflex] 500 mg PO Q6HR #28 cap 08/10/20 Ondansetron Odt [Zofran Odt] 4 mg PO Q8HR PRN #10 tab 08/10/20 Allergies Allergy/AdvReac Type Severity Reaction Status Date / Time Penicillins Allergy Severe Rash/Hives Verified 08/10/20 16:35 pollen extracts Allergy SNEEZING Verified 08/10/20 16:35 Review of Systems ROS Statement: Those systems with pertinent positive or pertinent negative responses have been documented in the HPI. ROS Other: All systems not noted in ROS Statement are negative. Past Medical History Past Medical History: Osteoarthritis (OA), Seizure Disorder, [facility] ea/CPAP/BIPAP Additional Past Medical History / Comment(s): Last seizure 09/18/09, MERVIN has CPAP but has not worn in about 1 1/2 yrs due to needing a new filter, SSS requiring pacemaker, arthritis in back-back pain, History of Any Multi-Drug Resistant Organisms: None Reported Past Surgical History: Adenoidectomy, Section, Pacemaker, Tonsillectomy, Tubal Ligation Additional Past Surgical History / Comment(s): 07/13/06 tilt table test, D&C, C- Sections x 4, pilonidial cyst removed. Past Anesthesia/Blood Transfusion Reactions: Motion Sickness Type of Cardiac Device: Permanent Pacemaker Device Placement Date:: 07/14/06, 03/2016 Past Psychological History: Depression Smoking Status: Current every day smoker Past Alcohol Use History: Occasional Past Drug Use History: None Reported - Past Family History Father Family Medical History: Coronary Artery Disease (CAD) Additional Family Medical History / Comment(s): Father had heart problems and a pacemaker. He at age 77yrs. Mother Family Medical History: Diabetes Mellitus Additional Family Medical History / Comment(s): Mother is 73 yrs old General Exam Limitations: no limitations General appearance: alert, in no apparent distress Head exam: Present: atraumatic, normocephalic, normal inspection Eye exam: Present: normal appearance, PERRL, EOMI. Absent: scleral icterus, conjunctival injection, periorbital swelling ENT exam: Present: normal exam, mucous membranes moist Neck exam: Present: normal inspection. Absent: tenderness, meningismus, lymphadenopathy Respiratory exam: Present: normal lung sounds bilaterally. Absent: respiratory distress, wheezes, rales, rhonchi, stridor Cardiovascular Exam: Present: normal rhythm, tachycardia, normal heart sounds. Absent: systolic murmur, diastolic murmur, rubs, gallop, clicks GI/Abdominal exam: Present: soft, normal bowel sounds. Absent: distended, tenderness, guarding, rebound, rigid Extremities exam: Present: normal inspection, full ROM, normal capillary refill. Absent: tenderness, pedal edema, joint swelling, calf tenderness Back exam: Present: CVA tenderness (R) Neurological exam: Present: alert, oriented X3, CN II-XII intact Psychiatric exam: Present: normal affect, normal mood Skin exam: Present: warm, dry, intact, normal color. Absent: rash Course Vital Signs 08/10/20 08/10/20 08/10/20 12:53 15:40 15:55 Temperature 99.1 F 101.8 F H Pulse Rate 115 H 100 103 H Respiratory 18 16 16 Rate Blood Pressure 131/76 96/62 98/64 O2 Sat by Pulse 97 98 96 Oximetry 08/10/20 17:12 Temperature 99.5 F Pulse Rate 89 Respiratory 16 Rate Blood Pressure 106/59 O2 Sat by Pulse 96 Oximetry EKG Findings - EKG Comments: EKG Findings:: EKG demonstrates a sinus tachycardia with a ventricular rate of 102. AK interval 128. QRS 86. QTC of 419. No acute ST segment elevations or depressions. Medical Decision Making - Medical Decision Making Upon arrival patient placed in room 13. There are history of physical exam is performed. IV is established the patient is given 2 L bolus of normal saline. She was also provided 4 mg of Zofran and 600 mg Tylenol. Laboratory studies were conducted patient presents urine sample. Sodium mildly low at 132. Urinalysis demonstrates 30 red blood cells, 58 white blood cells and bacteria. Covid negative. Chest x-ray demonstrates no acute cardiopulmonary processes. CT abdomen and pelvis demonstrates perinephric fat stranding on the right sugges tive of pyelonephritis. Results discussed the patient. She was given a dose of Rocephin. Patient reevaluated and has great improvement in her heart rate, blood pressure and fever. At this time the patient will be discharged home on Keflex. Instructed start taking them tomorrow. Encourage fluid intake. Take Tylenol for fever. Follow-up with her doctor to 4 days. Return to the emergency room for any new or worsening symptoms. Patient agreed to this and was discharged home in stable condition - Lab Data Result diagrams: 08/10/20 13:46 08/10/20 13:46 Lab Results 08/10/20 08/10/20 08/10/20 Range/Units 13:46 13:46 13:46 WBC 8.9 (3.8-10.6) k/uL RBC 4.83 (3.80-5.40) m/uL Hgb 13.0 (11.4-16.0) gm/dL Hct 38.2 (34.0-46.0) % MCV 79.0 L (80.0-100.0) fL MCH 27.0 (25.0-35.0) pg MCHC 34.1 (31.0-37.0) g/dL RDW 14.7 (11.5-15.5) % Plt Count 178 (150-450) k/uL MPV 6.9 Neutrophils % 85 % Lymphocytes % 6 % Monocytes % 6 % Eosinophils % 1 % Basophils % 0 % Neutrophils # 7.6 (1.3-7.7) k/uL Lymphocytes # 0.5 L (1.0-4.8) k/uL Monocytes # 0.5 (0-1.0) k/uL Eosinophils # 0.0 (0-0.7) k/uL Basophils # 0.0 (0-0.2) k/uL Sodium 132 L (137-145) mmol/L Potassium 3.8 (3.5-5.1) mmol/L Chloride 97 L (98-107) mmol/L Carbon Dioxide 26 (22-30) mmol/L Anion Gap 9 mmol/L BUN 18 H (7-17) mg/dL Creatinine 0.62 (0.52-1.04) mg/dL Est GFR (CKD-EPI)AfAm >90 (>60 ml/min/1.73 sqM) Est GFR (CKD-EPI)NonAf >90 (>60 ml/min/1.73 sqM) Glucose 121 H (74-99) mg/dL Plasma Lactic Acid Richie 1.3 (0.7-2.0) mmol/L Calcium 9.8 (8.4-10.2) mg/dL Total Bilirubin 0.3 (0.2-1.3) mg/dL AST 32 (14-36) U/L ALT 14 (4-34) U/L Alkaline Phosphatase 104 (38-126) U/L Total Protein 6.8 (6.3-8.2) g/dL Albumin 3.8 (3.5-5.0) g/dL Lipase 37 (23-300) U/L Urine Color Urine Appearance (Clear) Urine pH (5.0-8.0) Ur Specific [place] (1.001-1.035) Urine Protein (Negative) Urine Glucose (UA) (Negative) Urine Ketones (Negative) Urine Blood (Negative) Urine Nitrite (Negative) Urine Bilirubin (Negative) Urine Urobilinogen (<2.0) mg/dL Ur Leukocyte Esterase (Negative) Urine RBC (0-5) /hpf Urine WBC (0-5) /hpf Ur Squamous Epith Cells (0-4) /hpf Urine Bacteria (None) /hpf Hyaline Casts (0-2) /lpf Urine Mucus (None) /hpf Coronavirus (PCR) (Not Detectd) 08/10/20 08/10/20 Range/Units 13:48 14:10 WBC (3.8-10.6) k/uL RBC (3.80-5.40) m/uL Hgb (11.4-16.0) gm/dL Hct (34.0-46.0) % MCV (80.0-100.0) fL MCH (25.0-35.0) pg MCHC (31.0-37.0) g/dL RDW (11.5-15.5) % Plt Count (150-450) k/uL MPV Neutrophils % % Lymphocytes % % Monocytes % % Eosinophils % % Basophils % % Neutrophils # (1.3-7.7) k/uL Lymphocytes # (1.0-4.8) k/uL Monocytes # (0-1.0) k/uL Eosinophils # (0-0.7) k/uL Basophils # (0-0.2) k/uL Sodium (137-145) mmol/L Potassium (3.5-5.1) mmol/L Chloride (98-107) mmol/L Carbon Dioxide (22-30) mmol/L Anion Gap mmol/L BUN (7-17) mg/dL Creatinine (0.52-1.04) mg/dL Est GFR (CKD-EPI)AfAm (>60 ml/min/1.73 sqM) Est GFR (CKD-EPI)NonAf (>60 ml/min/1.73 sqM) Glucose (74-99) mg/dL Plasma Lactic Acid Richie (0.7-2.0) mmol/L Calcium (8.4-10.2) mg/dL Total Bilirubin (0.2-1.3) mg/dL AST (14-36) U/L ALT (4-34) U/L Alkaline Phosphatase (38-126) U/L Total Protein (6.3-8.2) g/dL Albumin (3.5-5.0) g/dL Lipase (23-300) U/L Urine Color Yellow Urine Appearance Cloudy H (Clear) Urine pH 6.0 (5.0-8.0) Ur Specific [place] 1.024 (1.001-1.035) Urine Protein 3+ H (Negative) Urine Glucose (UA) Negative (Negative) Urine Ketones Negative (Negative) Urine Blood Moderate H (Negative) Urine Nitrite Negative (Negative) Urine Bilirubin Negative (Negative) Urine Urobilinogen <2.0 (<2.0) mg/dL Ur Leukocyte Esterase Small H (Negative) Urine RBC 30 H (0-5) /hpf Urine WBC 58 H (0-5) /hpf Ur Squamous Epith Cells 4 (0-4) /hpf Urine Bacteria Rare H (None) /hpf Hyaline Casts 1 (0-2) /lpf Urine Mucus Moderate H (None) /hpf Coronavirus (PCR) Not Detected (Not Detectd) Disposition Clinical Impression: Pyelonephritis, Right flank pain Disposition: HOME SELF-CARE Condition: Stable Instructions (If sedation given, give patient instructions): Kidney Infection (ED) Additional Instructions: Please follow up with your primary care doctor in 2-4 days. Return to the emergency room for any new or worsening symptoms. Take tylenol every 6-8 hours for fever. Prescriptions: Cephalexin [Keflex] 500 mg PO Q6HR #28 cap Ondansetron Odt [Zofran Odt] 4 mg PO Q8HR PRN #10 tab PRN Reason: Nausea Is patient prescribed a controlled substance at d/c from ED?: No Referrals: Latesha Cedillo MD [Primary Care Provider] - 1-2 days Time of Disposition: 17:28
--- NOTE | 2020-08-10 15:07 | XR ---
EXAMINATION TYPE: XR chest 2V DATE OF EXAM: 08/10/2020 COMPARISON: 01/31/2018. HISTORY: Cough. TECHNIQUE: Frontal and lateral views of the chest are obtained. FINDINGS: There is no focal air space opacity, pleural effusion, or pneumothorax seen. The cardiac silhouette size is within normal limits. The osseous structures are intact. Right pacemaker seen. IMPRESSION: No acute cardiopulmonary process.
[2020-08-10 15:42] VITALS: RESP 16
--- NOTE | 2020-08-10 15:43 | CT ---
EXAMINATION TYPE: CT abdomen pelvis w con DATE OF EXAM: 08/10/2020 COMPARISON: 03/15/2018. HISTORY: Right lower quadrant pain with nausea. CT DLP: 1199.3 mGycm Automated exposure control for dose reduction was used. TECHNIQUE: Helical acquisition of images was performed from the lung bases through the pelvis. CONTRAST: Performed without Oral Contrast and with IV Contrast, patient injected with 100 mL of Isovue 300. FINDINGS: LUNG BASES: No significant abnormality is appreciated. LIVER/GB: No acute abnormality is appreciated. Stable scattered few hepatic cysts measuring up to 1.4 cm. PANCREAS: No significant abnormality is seen. SPLEEN: No significant abnormality is seen. ADRENALS: No acute abnormality is seen. Stable 3.4 cm left adrenal lesion. KIDNEYS: Heterogeneous enhancement of the right kidney with mild perinephric fat stranding. Additiona l fat stranding along the ureter. No bilateral hydronephrosis. Few nonobstructing renal calculi bilat erally measuring up to 2 mm. FREE AIR: No free air is visualized. RETROPERITONEAL ADENOPATHY: None visualized REPRODUCTIVE ORGANS: No significant abnormality is seen URINARY BLADDER: Decompressed, limiting evaluation. PELVIC ADENOPATHY: None visualized. OSSEOUS STRUCTURES: No significant abnormality is seen. BOWEL: No significant abnormality is seen. Normal appendix. OTHER: None IMPRESSION: HETEROGENEOUSLY ENHANCING RIGHT KIDNEY WITH PERINEPHRIC FAT STRANDING INVOLVING THE URETER. FINDINGS ARE SUGGESTIVE OF PYELONEPHRITIS AND/OR UTI. CHRONIC AND INCIDENTAL FINDINGS ABOVE.
[2020-08-10] MEDS ORDERED: IBUPROFEN 600 MG TAB PO STA (15:59)
[2020-08-10] MEDS ORDERED: SODIUM CHLORIDE 0.9% 1,000 ML IV ONE (15:59)
[2020-08-10 17:13] VITALS: BP 106/59; PULSE 89; TEMP 99.5
== END 2020-08-10 17:41 | disposition home or self-care (01) ==
LOC: EC 12:44
DX: N12 Tubulo-interstitial nephritis, not specified as acute or chronic (principal); R19.7 Diarrhea, unspecified; R05 Cough; R06.02 Shortness of breath; M19.90 Unspecified osteoarthritis, unspecified site; F32.9 Major depressive disorder, single episode, unspecified; F17.200 Nicotine dependence, unspecified, uncomplicated; G40.909 Epilepsy, unspecified, not intractable, without status epilepticus; G47.33 Obstructive sleep apnea (adult) (pediatric); Z20.822 Contact with and (suspected) exposure to COVID-19; Z88.0 Allergy status to penicillin; Z79.899 Other long term (current) drug therapy
CPT/HCPCS: 99285; 96374; 96375; 96361; 36415; 93005; 80053; 83605; 83690; 85025; 81001; 87086; 87635; 71046; 74177; J2405; J0696; Q9967; 87077; 87186

== ENCOUNTER → 2020-09-04 | Outpatient (CLI) | payer MEDICARE ==
--- NOTE | 2020-09-04 11:54 | US ---
EXAMINATION TYPE: US venous doppler duplex LE LT DATE OF EXAM: 09/04/2020 11:39 AM COMPARISON: NONE CLINICAL HISTORY: M79.662 pain in left lower limb. SIDE PERFORMED: Left TECHNIQUE: The lower extremity deep venous system is examined utilizing real time linear array sonog garett with graded compression, doppler sonography and color-flow sonography. VESSELS IMAGED: Common Femoral Vein Deep Femoral Vein Greater Saphenous Vein * Femoral Vein Popliteal Vein Small Saphenous Vein * Proximal Calf Veins (* superficial vessels) Left Leg: Negative for DVT Grayscale, color doppler, spectral doppler imaging performed of the deep veins of the left lower extr emity. There is normal flow, compressibility, vascular waveforms. IMPRESSION: No ultrasound evidence for acute DVT in the left lower extremity.
== END | disposition home or self-care (01) ==
LOC: RADUSWWP 11:19
PROVIDERS: ATTEND Internal Medicine
DX: M79.662 Pain in left lower leg (principal)

== ENCOUNTER 2021-01-05 19:12 | Observation (INO) | payer MEDICARE ==
[2021-01-05 20:23] LABS: Anisocytosis Slight; Basophils # (A) 0.1 k/uL (0-0.2); Basophils % (A) 1 %; Eosinophils # (A) 0.1 k/uL (0-0.7); Eosinophils % (A) 1 %; HCT 40.4 % (34.0-46.0); HGB 12.5 gm/dL (11.4-16.0); Hypochromasia Slight; Lymphocytes # (A) 2.6 k/uL (1.0-4.8); Lymphocytes % (A) 30 %; MCH 23.4 pg (25.0-35.0); MCV 75.3 fL (80.0-100.0); Mean Platelet Volume 7.3; Microcytosis Moderate; Monocytes # (A) 0.4 k/uL (0-1.0); Monocytes % (A) 5 %; Neutrophils # (A) 5.2 k/uL (1.3-7.7); Neutrophils % (A) 61 %; Platelet Count 329 k/uL (150-450); RBC 5.36 m/uL (3.80-5.40); RDW 19.3 % (11.5-15.5); WBC 8.6 k/uL (3.8-10.6)
[2021-01-05 20:30] LABS: ALT 12 U/L (4-34); AST 23 U/L (14-36); African American GFR (CKD) >90 (>60 ml/min/1.73 sqM); Albumin 4.1 g/dL (3.5-5.0); Alkaline Phosphatase 118 U/L (38-126); Anion Gap 6 mmol/L; Blood Urea Nitrogen 20 mg/dL (7-17); Calcium 9.9 mg/dL (8.4-10.2); Carbon Dioxide 29 mmol/L (22-30); Chloride 101 mmol/L (98-107); Glucose 102 mg/dL (74-99); INR 0.9 (<1.2); Non-African American GFR(CKD) >90 (>60 ml/min/1.73 sqM); Partial Thromboplastin Time 26.2 sec (22.0-30.0); Prothrombin Time 9.8 sec (9.0-12.0); Sodium 136 mmol/L (137-145); Total Bilirubin <0.1 mg/dL (0.2-1.3)
[2021-01-05] MEDS ORDERED: ASPIRIN 81 MG PO STA (20:39)
--- NOTE | 2021-01-05 21:02 | XR ---
EXAMINATION TYPE: XR chest 2V DATE OF EXAM: 01/05/2021 COMPARISON: Chest radiograph 08/10/2020 HISTORY: Chest pain TECHNIQUE: Frontal and lateral views of the chest are obtained. FINDINGS: Right-sided dual-lead pacemaker is present. There is no focal air space opacity, pleural e ffusion, or pneumothorax seen. The cardiac silhouette size is within normal limits. The osseous st ructures are intact. IMPRESSION: No acute cardiopulmonary process.
--- NOTE | 2021-01-05 21:26 | ED ---
General Adult HPI - General Chief complaint: Chest Pain Stated complaint: chest & neck pain Time Seen by Provider: 01/05/21 20:27 Source: patient Mode of arrival: wheelchair Limitations: no limitations - History of Present Illness Initial comments: 50-year-old female with a past medical history of arthritis, seizure disorder, sick sinus syndrome requiring pacemaker presents to the emergency room for a chief chest pain. Patient reports the pain started about an hour prior to arrival. States it radiates up to her neck. States it feels like a fist on her chest. Patient admits to nausea at home but denies nausea at this time. Denies any diaphoresis at this time. Denies shortness of breath or pain with deep breathing. Patient does admit to a 25 pack per year smoking history. Patient has a history of hypercholesterolemia.Patient has no other complaints at this time including shortness of breath, abdominal pain, nausea or vomiting, headache , or visual changes. - Related Data Home Medications Medication Instructions Recorded Confirmed Pantoprazole Sodium 40 mg PO DAILY 06/30/14 01/05/21 levETIRAcetam [Keppra] 1,000 mg PO BID 06/30/14 01/05/21 Rosuvastatin [Crestor] 10 mg PO DAILY 08/10/20 01/05/21 Butalb/Acetaminophen/Caffeine 1 tab PO BID PRN 01/05/21 01/05/21 [Esgic 50-325-40 mg Tablet] Triamcinolone Acetonide [Nasacort] 1 spray EA NOSTRIL DAILY PRN 01/05/21 01/05/21 Venlafaxine HCl ER [Effexor XR] 150 mg PO DAILY 01/05/21 01/05/21 Allergies Allergy/AdvReac Type Severity Reaction Status Date / Time Penicillins Allergy Severe Rash/Hives Verified 01/05/21 20:58 pollen extracts Allergy SNEEZING Verified 01/05/21 20:58 Review of Systems ROS Statement: Those systems with pertinent positive or pertinent negative responses have been documented in the HPI. ROS Other: All systems not noted in ROS Statement are negative. Past Medical History Past Medical History: Osteoarthritis (OA), Seizure Disorder, Sleep Apnea/CPAP/BIPAP Additional Past Medical History / Comment(s): Last seizure 09/18/09, MERVIN has CPAP but has not worn in about 1 1/2 yrs due to needing a new filter, SSS requiring pacemaker, arthritis in back-back pain, History of Any Multi-Drug Resistant Organisms: None Reported Past Surgical History: Adenoidectomy, Section, Pacemaker, Tonsil lectomy, Tubal Ligation Additional Past Surgical History / Comment(s): 07/13/06 tilt table test, D&C, C- Sections x 4, pilonidial cyst removed. Past Anesthesia/Blood Transfusion Reactions: Motion Sickness Type of Cardiac Device: Permanent Pacemaker Device Placement Date:: 07/14/06, 03/2016 Past Psychological History: Depression Smoking Status: Current every day smoker Past Alcohol Use History: Occasional Past Drug Use History: None Reported - Past Family History Father Family Medical History: Coronary Artery Disease (CAD) Additional Family Medical History / Comment(s): Father had heart problems and a pacemaker. He at age 77yrs. Mother Family Medical History: Diabetes Mellitus Additional Family Medical History / Comment(s): Mother is 73 yrs old General Exam Limitations: no limitations General appearance: alert, in no apparent distress Head exam: Present: atraumatic, normocephalic, normal inspection Eye exam: Present: normal appearance, PERRL, EOMI. Absent: scleral icterus, conjunctival injection, periorbital swelling ENT exam: Present: normal exam, mucous membranes moist Neck exam: Present: normal inspection, full ROM. Absent: tenderness, meningismus, lymphadenopathy Respiratory exam: Present: normal lung sounds bilaterally. Absent: respiratory distress, wheezes, rales, rhonchi, stridor Cardiovascular Exam: Present: regular rate, normal rhythm, normal heart sounds. Absent: systolic murmur, diastolic murmur, rubs, gallop, clicks GI/Abdominal exam: Present: soft, normal bowel sounds. Absent: distended, tenderness, guarding, rebound, rigid Neurological exam: Present: alert Course Vital Signs 01/05/21 19:15 Temperature 98.1 F Pulse Rate 85 Respiratory 19 Rate Blood Pressure 117/73 O2 Sat by Pulse 97 Oximetry EKG Findings - EKG Comments: EKG Findings:: Normal sinus rhythm, ventricular rate 78, WA interval 124, QTc 442 Medical Decision Making - Medical Decision Making Vitals are stable. Patient is well-appearing. CBC CMP unremarkable. Troponin is negative. D-dimer is normal. Chest x-ray shows no acute cardiopulmonary process. EKG is nonischemic. Given some typical features of chest pain as well as cardiac risk factors Patient will be admitted for cardiology consultation and trending trops, - Lab Data Result diagrams: 01/05/21 20:09 01/05/21 20:09 Lab Results 01/05/21 01/05/21 01/05/21 Range/Units 20:09 20:09 20:09 WBC 8.6 (3.8-10.6) k/uL RBC 5.36 (3.80-5.40) m/uL Hgb 12.5 (11.4-16.0) gm/dL Hct 40.4 (34.0-46.0) % MCV 75.3 L (80.0-100.0) fL MCH 23.4 L (25.0-35.0) pg MCHC 31.0 (31.0-37.0) g/dL RDW 19.3 H (11.5-15.5) % Plt Count 329 (150-450) k/uL MPV 7.3 Neutrophils % 61 % Lymphocytes % 30 % Monocytes % 5 % Eosinophils % 1 % Basophils % 1 % Neutrophils # 5.2 (1.3-7.7) k/uL Lymphocytes # 2.6 (1.0-4.8) k/uL Monocytes # 0.4 (0-1.0) k/uL Eosinophils # 0.1 (0-0.7) k/uL Basophils # 0.1 (0-0.2) k/uL Hypochromasia Slight Anisocytosis Slight Microcytosis Moderate PT 9.8 (9.0-12.0) sec INR 0.9 (<1.2) APTT 26.2 (22.0-30.0) sec D-Dimer (<0.60) mg/L FEU Sodium 136 L (137-145) mmol/L Potassium 4.0 (3.5-5.1) mmol/L Chloride 101 (98-107) mmol/L Carbon Dioxide 29 (22-30) mmol/L Anion Gap 6 mmol/L BUN 20 H (7-17) mg/dL Creatinine 0.65 (0.52-1.04) mg/dL Est GFR (CKD-EPI)AfAm >90 (>60 ml/min/1.73 sqM) Est GFR (CKD-EPI)NonAf >90 (>60 ml/min/1.73 sqM) Glucose 102 H (74-99) mg/dL Calcium 9.9 (8.4-10.2) mg/dL Magnesium 2.0 (1.6-2.3) mg/dL Total Bilirubin <0.1 L (0.2-1.3) mg/dL AST 23 (14-36) U/L ALT 12 (4-34) U/L Alkaline Phosphatase 118 (38-126) U/L Troponin I (0.000-0.034) ng/mL Total Protein 7.0 (6.3-8.2) g/dL Albumin 4.1 (3.5-5.0) g/dL 01/05/21 01/05/21 Range/Units 20:09 20:09 WBC (3.8-10.6) k/uL RBC (3.80-5.40) m/uL Hgb (11.4-16.0) gm/dL Hct (34.0-46.0) % MCV (80.0-100.0) fL MCH (25.0-35.0) pg MCHC (31.0-37.0) g/dL RDW (11.5-15.5) % Plt Count (150-450) k/uL MPV Neutrophils % % Lymphocytes % % Monocytes % % Eosinophils % % Basophils % % Neutrophils # (1.3-7.7) k/uL Lymphocytes # (1.0-4.8) k/uL Monocytes # (0-1.0) k/uL Eosinophils # (0-0.7) k/uL Basophils # (0-0.2) k/uL Hypochromasia Anisocytosis Microcytosis PT (9.0-12.0) sec INR (<1.2) APTT (22.0-30.0) sec D-Dimer 0.43 (<0.60) mg/L FEU Sodium (137-145) mmol/L Potassium (3.5-5.1) mmol/L Chloride (98-107) mmol/L Carbon Dioxide (22-30) mmol/L Anion Gap mmol/L BUN (7-17) mg/dL Creatinine (0.52-1.04) mg/dL Est GFR (CKD-EPI)AfAm (>60 ml/min/1.73 sqM) Est GFR (CKD-EPI)NonAf (>60 ml/min/1.73 sqM) Glucose (74-99) mg/dL Calcium (8.4-10.2) mg/dL Magnesium (1.6-2.3) mg/dL Total Bilirubin (0.2-1.3) mg/dL AST (14-36) U/L ALT (4-34) U/L Alkaline Phosphatase (38-126) U/L Troponin I <0.012 (0.000-0.034) ng/mL Total Protein (6.3-8.2) g/dL Albumin (3.5-5.0) g/dL Disposition Clinical Impression: Chest pain Disposition: ADMITTED IP TO THIS HOSP Additional Instructions: Please follow-up with your doctor in one to 2 days. Return to the emergency room for any worsening symptoms. Is patient prescribed a controlled substance at d/c from ED?: No Referrals: Latesha Cedillo MD [Primary Care Provider] - 1-2 days Time of Disposition: 21:53
[2021-01-06 08:42] VITALS: RESP 18
[2021-01-06] MEDS ORDERED: ATORVASTATIN 20 MG TAB PO SCH (09:00)
[2021-01-06] MEDS ORDERED: ASPIRIN 325 MG TAB PO SCH (09:00)
[2021-01-06] MEDS ORDERED: ASPIRIN 81 MG PO SCH (09:00)
--- NOTE | 2021-01-06 09:22 | P.CRDCN ---
History of Present Illness History of present illness: HISTORY OF PRESENTING ILLNESS This is a pleasant 50-year-old female past medical history significant for sick sinus syndrome status post permanent pacemaker implantation, mild ervin tid artery disease, seizure disorder and dyslipidemia. She follows in the office with Dr. Gallegos. We have been asked to see in consultation for chest pain. He states yesterday while standing she developed chest discomfort in the left precordial region that radiated up to her neck on both sides. It felt like a fist in the chest associated with some nausea. It lasted for approximately one hour and did ultimately subsided on its own. She denies any associated shortness of breath, dizziness or palpitations. She is currently chest pain- free. DIAGNOSTICS EKG reveals sinus mechanism heart rate of 78 with poor R-wave progression and nonspecific T-wave abnormalities inferiorly. Chest xray today for an acute cardiopulmonary process. Laboratory reviewed, CBC unremarkable, d-dimer 0.43, sodium 136, potassium 4, creatinine 0.65, cardiac enzymes negative 3, magnesium 2.0. Current cardiac medications include rosuvastatin 10 mg daily. REVIEW OF SYSTEMS At the time of my exam: CONSTITUTIONAL: Denies fever or chills. CARDIOVASCULAR: Denies chest pain, shortness of breath, orthopnea, PND or palpitations. RESPIRATORY: Denies cough. GASTROINTESTINAL: Denies abdominal pain, diarrhea, constipation, nausea or vomiting. MUSCULOSKELETAL: Denies myalgias. NEUROLOGIC: Denies numbness, tingling, headache or weakness. ENDOCRINE: Denies fatigue, weight change, polydipsia or polyurina. GENITOURINARY: Denies burning, hematuria or urgency with micturation. HEMATOLOGIC: Denies history of anemia or bleeding. PHYSICAL EXAMINATION Blood pressure 119/75 heart rate 79 afebrile and maintaining oxygen saturation on room air. CONSTITUTIONAL: No apparent distress. Obese. HEENT: Head is normocephalic. Pupils are equal, round. Sclerae anicteric. Mucous membranes of the mouth are moist. No JVD. No carotid bruit. CHEST EXAMINATION: Lungs are clear to auscultation. No chest wall tenderness is noted on palpation or with deep breathing. HEART EXAMINATION: Regular rate and rhythm. S1, S2 heard. No murmurs, gallops or rub. ABDOMEN: Soft, nontender. EXTREMITIES: 2+ peripheral pulses, no lower extremity edema and no calf tenderness. NEUROLOGIC EXAMINATION: Patient is awake, alert and oriented x3. ASSESSMENT Chest pain, atypical Sick sinus syndrome status post permanent pacemaker implantation Dyslipidemia Seizure disorder PLAN An acute coronary event has been ruled out. Pain is atypical for angina. Stable for discharge from a cardiac perspective. Follow-up in the office with Dr. Gallegos for outpatient stress testing. Thank you kindly for this consultation. Nurse Practitioner note has been reviewed, I agree with a documented findings and plan of care. Patient was seen and examined. Past Medical History Past Medical History: Osteoarthritis (OA), Seizure Disorder, Sleep Apnea/CPAP/BIPAP Additional Past Medical History / Comment(s): Last seizure 09/18/09, MERVIN has CPAP but has not worn in about 1 1/2 yrs due to needing a new filter, SSS requiring pacemaker, arthritis in back-back pain, History of Any Multi-Drug Resistant Organisms: None Reported Past Surgical History: Adenoidectomy, Section, Pacemaker, Tonsillectomy, Tubal Ligation Additional Past Surgical History / Comment(s): 07/13/06 tilt table test, D&C, C- Sections x 4, pilonidial cyst removed. Past Anesthesia/Blood Transfusion Reactions: Motion Sickness Type of Cardiac Device: Permanent Pacemaker Device Placement Date:: 07/14/06, 03/2016 Past Psychological History: Depression Smoking Status: Current every day smoker Past Alcohol Use History: Occasional Past Drug Use History: None Reported - Past Family History Father Family Medical History: Coronary Artery Disease (CAD) Additional Family Medical History / Comment(s): Father had heart problems and a pacemaker. He at age 77yrs. Mother Family Medical History: Diabetes Mellitus Additional Family Medical History / Comment(s): Mother is 73 yrs old Medications and Allergies Home Medications Medication Instructions Recorded Confirmed Type Pantoprazole Sodium 40 mg PO DAILY 06/30/14 01/05/21 History levETIRAcetam [Keppra] 1,000 mg PO BID 06/30/14 01/05/21 History Rosuvastatin [Crestor] 10 mg PO DAILY 08/10/20 01/05/21 History Butalb/Acetaminophen/Caffeine 1 tab PO BID PRN 01/05/21 01/05/21 History [Esgic 50-325-40 mg Tablet] Triamcinolone Acetonide [Nasacort] 1 spray EA NOSTRIL DAILY PRN 01/05/21 01/05/21 History Venlafaxine HCl ER [Effexor XR] 150 mg PO DAILY 01/05/21 01/05/21 History Allergies Allergy/AdvReac Type Severity Reaction Status Date / Time Penicillins Allergy Severe Rash/Hives Verified 01/05/21 20:58 pollen extracts Allergy SNEEZING Verified 01/05/21 20:58 Physical Exam Vitals: Vital Signs Temp Pulse Resp BP Pulse Ox 01/06/21 05:21 58 L 16 115/69 95 01/06/21 02:00 78 16 116/68 97 01/05/21 19:15 98.1 F 85 19 117/73 97 Intake and Output 01/05/21 01/06/21 01/06/21 22:59 06:59 14:59 Other: Weight 87.543 kg Results 01/05/21 20:09 01/05/21 20:09 Cardiac Enzymes 01/05/21 01/05/21 01/05/21 Range/Units 20:09 20:09 22:45 AST 23 (14-36) U/L Troponin I <0.012 <0.012 (0.000-0.034) ng/mL 01/06/21 Range/Units 02:13 AST (14-36) U/L Troponin I <0.012 (0.000-0.034) ng/mL Coagulation 01/05/21 Range/Units 20:09 PT 9.8 (9.0-12.0) sec APTT 26.2 (22.0-30.0) sec CBC 01/05/21 Range/Units 20:09 WBC 8.6 (3.8-10.6) k/uL RBC 5.36 (3.80-5.40) m/uL Hgb 12.5 (11.4-16.0) gm/dL Hct 40.4 (34.0-46.0) % Plt Count 329 (150-450) k/uL Comprehensive Metabolic Panel 01/05/21 Range/Units 20:09 Sodium 136 L (137-145) mmol/L Potassium 4.0 (3.5-5.1) mmol/L Chloride 101 (98-107) mmol/L Carbon Dioxide 29 (22-30) mmol/L BUN 20 H (7-17) mg/dL Creatinine 0.65 (0.52-1.04) mg/dL Glucose 102 H (74-99) mg/dL Calcium 9.9 (8.4-10.2) mg/dL AST 23 (14-36) U/L ALT 12 (4-34) U/L Alkaline Phosphatase 118 (38-126) U/L Total Protein 7.0 (6.3-8.2) g/dL Albumin 4.1 (3.5-5.0) g/dL Current Medications Generic Name Dose Route Start Last Admin Trade Name Freq PRN Reason Stop Dose Admin Aspirin 81 mg 01/06/21 09:00 Aspirin 325 Mg Tab PO DAILY NORM Non-Formulary Medication 10 mg 01/06/21 09:00 Rosuvastatin PO DAILY NORM Intake and Output 01/05/21 01/06/21 01/06/21 22:59 06:59 14:59 Other: Weight 87.543 kg 01/05/21 20:09 01/05/21 20:09
[2021-01-06] MEDS ORDERED: FLUTICASONE 50MCG/SPRAY NASAL 16GM EA NOSTRIL PRN (10:03)
[2021-01-06] MEDS ORDERED: BUTALB/APAP/CAFF 50-325-40MG TAB PO PRN (10:03)
[2021-01-06] MEDS ORDERED: PANTOPRAZOLE 40 MG TABLET PO SCH (10:15)
[2021-01-06] MEDS ORDERED: VENLAFAXINE HCL ER 150 MG CAP PO SCH (10:15)
--- NOTE | 2021-01-06 10:27 | P.HPIM ---
History of Present Illness H&P Date: 01/06/21 Nena Morales is a 50-year-old female, who presented to [facility] emergency room with a chief complaint of chest pain, patient describes a sharp pain in the midsternal area that radiates to the neck, pain started at around 6 PM last night. And patient decided to come to emergency room, she was evaluated in the emergency room vital examination on presentation revealed a temperature of 98.1 pulse 85 respiration 19 and blood pressure 117/73 pulse ox 97% on room air Laboratory data revealed a white blood count of 8.6 hemoglobin 12.5 platelet count 329 sodium 136 potassium 4.0 chloride 101 CO2 29 BUN 20 creatinine 0.65 glucose level was 102 troponin level was less than 0.012 Testing in the emergency room revealed EKG revealed normal sinus rhythm with possible anterior infarct due to poor R wave progression, no ST or T-wave abnormalities, chest x-ray revealed no acute cardiopulmonary process Patient was admitted to medical floor for further evaluation and treatment. Se rial EKG and cardiac enzymes were ordered cardiology consultation was requested Past medical history is significant for history of hyperlipidemia, history of osteoarthritis, history of seizure disorder, history of obstructive sleep apnea maintained on CPAP, however patient is not compliant with wearing CPAP, history of sick sinus syndrome with previous history of pacemaker placement, history of depression, history of atrial septal defect On review of systems Patient is alert and oriented x 3 in no distress, at this time she denies any complaints there is no fever or chills no headache or dizzi ness no chest pain no shortness of breath no palpitation no cough no nausea or vomiting no abdominal pain no diarrhea no blood in the stools no burning with urination no frequency or urgency and no hematuria, there is no weakness or numbness in any of the extremities no change in vision speech or gait. Past Medical History Past Medical History: Osteoarthritis (OA), Seizure Disorder, Sleep Apnea/CPAP/BIPAP Additional Past Medical History / Comment(s): Last seizure 09/18/09, MERVIN has CPAP but has not worn in about 1 1/2 yrs due to needing a new filter, SSS requiring pacemaker, arthritis in back-back pain, History of Any Multi-Drug Resistant Organisms: None Reported Past Surgical History: Adenoidectomy, Section, Pacemaker, Tonsillectomy, Tubal Ligation Additional Past Surgical History / Comment(s): 07/13/06 tilt table test, D&C, C- Sections x 4, pilonidial cyst removed. Past Anesthesia/Blood Transfusion Reactions: Motion Sickness Type of Cardiac Device: Permanent Pacemaker Device Placement Date:: 07/14/06, 03/2016 Past Psychological History: Depression Smoking Status: Current every day smoker Past Alcohol Use History: Occasional Past Drug Use History: None Reported - Past Family History Father Family Medical History: Coronary Artery Disease (CAD) Additional Family Medical History / Comment(s): Father had heart problems and a pacemaker. He at age 77yrs. Mother Family Medical History: Diabetes Mellitus Additional Family Medical History / Comment(s): Mother is 73 yrs old Medications and Allergies Home Medications Medication Instructions Recorded Confirmed Type Pantoprazole Sodium 40 mg PO DAILY 06/30/14 01/05/21 History levETIRAcetam [Keppra] 1,000 mg PO BID 06/30/14 01/05/21 History Rosuvastatin [Crestor] 10 mg PO DAILY 08/10/20 01/05/21 History Butalb/Acetaminophen/Caffeine 1 tab PO BID PRN 01/05/21 01/05/21 History [Esgic 50-325-40 mg Tablet] Triamcinolone Acetonide [Nasacort] 1 spray EA NOSTRIL DAILY PRN 01/05/21 01/05/21 History Venlafaxine HCl ER [Effexor XR] 150 mg PO DAILY 01/05/21 01/05/21 History Aspirin 81 mg PO DAILY chew 01/06/21 Rx Allergies Allergy/AdvReac Type Severity Reaction Status Date / Time Penicillins Allergy Severe Rash/Hives Verified 01/05/21 20:58 pollen extracts Allergy SNEEZING Verified 01/05/21 20:58 Physical Exam Vitals: Vital Signs Temp Pulse Resp BP Pulse Ox 01/06/21 08:39 79 18 119/75 98 01/06/21 05:21 58 L 16 115/69 95 01/06/21 02:00 78 16 116/68 97 01/05/21 19:15 98.1 F 85 19 117/73 97 Intake and Output 01/05/21 01/06/21 01/06/21 22:59 06:59 14:59 Other: Weight 87.543 kg In general patient is alert and oriented x 3 in no distress HEENT head normocephalic and atraumatic Neck is supple no JVD no goiter no lymphadenopathy no carotid bruit Chest examination is clear to auscultation no crackles no wheezing Cardiac exam reveals regular heart sounds S1 and S2 no gallops no murmurs Abdomen is soft nontender no organomegaly with normal bowel sounds Extremity exam reveals no edema no cyanosis or clubbing Neurological examination reveals no gross focal deficits Results CBC & Chem 7: 01/05/21 20:09 01/05/21 20:09 Labs: Abnormal Lab Results - Last 24 Hours (Table) 01/05/21 01/05/21 Range/Units 20:09 20:09 MCV 75.3 L (80.0-100.0) fL MCH 23.4 L (25.0-35.0) pg RDW 19.3 H (11.5-15.5) % Sodium 136 L (137-145) mmol/L BUN 20 H (7-17) mg/dL Glucose 102 H (74-99) mg/dL Total Bilirubin <0.1 L (0.2-1.3) mg/dL Assessment and Plan Plan: Episode of chest pain, patient admitted to medical floor serial EKG and cardiac enzymes ordered cardiology consultation requested Underlying history of hyperlipidemia maintained on Crestor Underlying history of sick sinus syndrome patient has a history of pacemaker placement Underlying history of obstructive sleep apnea patient is not compliant with wearing CPAP Underlying history of gastroesophageal reflux disease Underlying history of depression Underlying history of seizure disorder At this time patient is admitted to telemetry floor cardiology consultation is requested serial EKG and cardiac enzymes ordered will follow closely home medications reviewed and reordered
[2021-01-06] MEDS ORDERED: levETIRAcetam 500 MG TAB PO SCH ×2 (10:30→21:00)
--- NOTE | 2021-01-06 10:30 | P.DS ---
Providers Date of admission: 01/05/21 21:49 Expected date of discharge: 01/06/21 Attending physician: Latesha Cedillo Consults: 01/05/21 21:53 Consult Physician Routine Consulting Provider: [facility] Consult Reason/Comments: chest pain Do you want consulting provider notified?: Yes Primary care physician: Latesha Contrerasjar [facility] Course: Diagnosis on discharge: Episode of chest pain, patient admitted to medical floor serial EKG and cardiac enzymes ordered cardiology consultation requested Underlying history of hyperlipidemia maintained on Crestor Underlying history of sick sinus syndrome patient has a history of pacemaker placement Underlying history of obstructive sleep apnea patient is not compliant with wearing CPAP Underlying history of gastroesophageal reflux disease Underlying history of depression Underlying history of seizure disorder Hospital course: Nena Morales is a 50-year-old female, who presented to [facility] emergency room with a chief complaint of chest pain, patient describes a sharp pain in the midsternal area that radiates to the neck, pain started at around 6 PM last night. And patient decided to come to emergency room, she was evaluated in the emergency room vital examination on presentation revealed a temperature of 98.1 pulse 85 respiration 19 and blood pressure 117/73 pulse ox 97% on room air Laboratory data revealed a white blood count of 8.6 hemoglobin 12.5 platelet count 329 sodium 136 potassium 4.0 chloride 101 CO2 29 BUN 20 creatinine 0.65 glucose level was 102 troponin level was less than 0.012 Testing in the emergency room revealed EKG revealed normal sinus rhythm with possible anterior infarct due to poor R wave progression, no ST or T-wave abnormalities, chest x-ray revealed no acute cardiopulmonary process Patient was admitted to medical floor for further evaluation and treatment. Serial EKG and cardiac enzymes were ordered cardiology consultation was requested Past medical history is significant for history of hyperlipidemia, history of osteoarthritis, history of seizure disorder, history of obstructive sleep apnea maintained on CPAP, however patient is not compliant with wearing CPAP, history of sick sinus syndrome with previous history of pacemaker placement, history of depression, history of atrial septal defect On review of systems Patient is alert and oriented x 3 in no distress, at this time she denies any complaints there is no fever or chills no headache or dizziness no chest pain no shortness of breath no palpitation no cough no nausea or vomiting no abdominal pain no diarrhea no blood in the stools no burning with urination no frequency or urgency and no hematuria, there is no weakness or nu mbness in any of the extremities no change in vision speech or gait. On 01/06/2021 Patient was seen and examined on the medical floor, he is alert and oriented x 3 in no distress, he denies any complaints there is no fever or chills no headache or dizziness no chest pain no shortness of breath no palpitation no cough no nausea or vomiting no abdominal pain no diarrhea no blood in the stools no burning with urination no frequency or urgency and no hematuria, there is no weakness or numbness in any of the extremities no change in vision speech or gait. Patient chest pain resolved, she was evaluated by cardiology, 3 sets of troponin were negative, patient was cleared for discharge by cardiology, she will be followed by her central supply nurse Dr. Gallegos she will have a stress test done as outpatient, patient will be followed in our office in 2-3 days, she was instructed to return to emergency room if having chest pain again Plan - Discharge Summary New Discharge Prescriptions: New Aspirin 81 mg PO DAILY chew Continue Pantoprazole Sodium 40 mg PO DAILY levETIRAcetam [Keppra] 1,000 mg PO BID Venlafaxine HCl ER [Effexor XR] 150 mg PO DAILY Rosuvastatin [Crestor] 10 mg PO DAILY Triamcinolone Acetonide [Nasacort] 1 spray EA NOSTRIL DAILY PRN PRN Reason: Allergy Symptoms Butalb/Acetaminophen/Caffeine [Esgic 50-325-40 mg Tablet] 1 tab PO BID PRN PRN Reason: Migraine Headache Discharge Medication List Pantoprazole Sodium 40 mg PO DAILY 06/30/14 [History] levETIRAcetam [Keppra] 1,000 mg PO BID 06/30/14 [History] Rosuvastatin [Crestor] 10 mg PO DAILY 08/10/20 [History] Butalb/Acetaminophen/Caffeine [Esgic 50-325-40 mg Tablet] 1 tab PO BID PRN 01/05/21 [History] Triamcinolone Acetonide [Nasacort] 1 spray EA NOSTRIL DAILY PRN 01/05/21 [History] Venlafaxine HCl ER [Effexor XR] 150 mg PO DAILY 01/05/21 [History] Aspirin 81 mg PO DAILY chew 01/06/21 [Rx] Follow up Appointment(s)/Referral(s): Torsten Gallegos MD [STAFF PHYSICIAN] - 1 Week Latesha Cedillo MD [Primary Care Provider] - 1-2 days Activity/Diet/Wound Care/Special Instructions: Please follow-up with your doctor in one to 2 days. Return to the emergency room for any worsening symptoms.
[2021-01-06 11:26] VITALS: BP 132/85; PULSE 77; TEMP 98.2
[2021-01-06 12:00] LABS: Chol/HDL Ratio 2.56; LDL Cholesterol,Calculated 52.4 mg/dL (0.0-131.0); VLDL Calculation 31.6 mg/dL (5.00-40.00)
== END 2021-01-06 11:26 | disposition home or self-care (01) ==
LOC: EC 19:12 → 1SOBS 21:49
PROVIDERS: ADMIT Internal Medicine; ATTEND Internal Medicine
DX: R07.89 Other chest pain (principal); E78.5 Hyperlipidemia, unspecified; I49.5 Sick sinus syndrome; G47.33 Obstructive sleep apnea (adult) (pediatric); K21.9 Gastro-esophageal reflux disease without esophagitis; F32.9 Major depressive disorder, single episode, unspecified; G40.909 Epilepsy, unspecified, not intractable, without status epilepticus; M47.9 Spondylosis, unspecified; M54.9 Dorsalgia, unspecified; Q21.1 Atrial septal defect; E78.00 Pure hypercholesterolemia, unspecified; F17.200 Nicotine dependence, unspecified, uncomplicated; Z79.82 Long term (current) use of aspirin; Z79.899 Other long term (current) drug therapy; Z88.0 Allergy status to penicillin; J30.1 Allergic rhinitis due to pollen; Z95.0 Presence of cardiac pacemaker; Z98.51 Tubal ligation status; Z98.891 History of uterine scar from previous surgery; Z82.49 Family history of ischemic heart disease and other diseases of the circulatory system; Z83.3 Family history of diabetes mellitus
CPT/HCPCS: 99285; 36415; 93005 ×2; 85379; 80061; 80053; 83735; 84484 ×2; 85025; 85610; 85730; 71046; G0378 ×2

== ENCOUNTER 2021-03-18 09:20 | Day surgery (SDC) | payer MEDICARE ==
[2021-03-14 12:02] VITALS: BMI 35.4
[~2021-03-18 09:20] MED LIST changes: +ALPRAZolam 0.25 MG TAB PO PRN; +ALPRAZolam 0.5 MG TAB PO PRN; +ASPIRIN 325 MG TAB PO STA; +ATORVASTATIN 80 MG TAB PO STA; -CLINDAMYCIN 600 MG in SODIUM CHLORIDE 0.9% IRRIGATIO 250 ML IRRIGATION ONE; -CLINDAMYCIN 900 MG in DEXTROSE 5% IN WATER 50 ML IVPB ONE; +HEPARIN SODIUM,PORCINE 10,000 UNIT in SODIUM CHLORIDE 0.9% 1,000 ML IRRIGATION PRN; +HEPARIN SODIUM,PORCINE 2,500 UNIT in SODIUM CHLORIDE 0.9% 250 ML IRRIGATION PRN; +NITROGLYCERIN SL TABS 0.4 MG TAB SUBLINGUAL PRN; +SODIUM CHLORIDE 0.9% 1,000 ML in EMPTY BAG 1 BAG IV SCH
[2021-03-18 10:19] VITALS: TEMP 98.6
[2021-03-18 10:50] LABS: Anisocytosis Slight; Basophils % (A) 1 %; Eosinophils % (A) 1 %; HCT 39.5 % (34.0-46.0); HGB 12.9 gm/dL (11.4-16.0); Lymphocytes % (A) 35 %; MCH 25.6 pg (25.0-35.0); MCHC 32.6 g/dL (31.0-37.0); MCV 78.3 fL (80.0-100.0); Microcytosis Slight; Monocytes # (A) 0.2 k/uL (0-1.0); Monocytes % (A) 4 %; Neutrophils # (A) 3.4 k/uL (1.3-7.7); Neutrophils % (A) 57 %; Platelet Count 297 k/uL (150-450); RBC 5.04 m/uL (3.80-5.40); RDW 17.5 % (11.5-15.5); WBC 5.9 k/uL (3.8-10.6)
[2021-03-18 11:10] LABS: African American GFR (CKD) >90 (>60 ml/min/1.73 sqM); Anion Gap 8 mmol/L; Blood Urea Nitrogen 16 mg/dL (7-17); Calcium 9.6 mg/dL (8.4-10.2); Carbon Dioxide 23 mmol/L (22-30); Chloride 108 mmol/L (98-107); Glucose 105 mg/dL (74-99); Non-African American GFR(CKD) >90 (>60 ml/min/1.73 sqM); Potassium 4.1 mmol/L (3.5-5.1); Sodium 139 mmol/L (137-145)
[2021-03-18] MEDS ORDERED: LIDOCAINE 1% INJ 10MG/ML (20 ML MDV) ONE (11:53)
[2021-03-18] MEDS ORDERED: VERAPAMIL 2.5 MG/ML 2 ML AMP ONE (11:54)
[2021-03-18] MEDS ORDERED: fentaNYL (PF) 50 MCG/ML 2 ML AMP ONE (12:09)
[2021-03-18] MEDS: fentaNYL (PF) 50 MCG/ML 2 ML AMP IV ONE ×2 (12:13→12:24)
[2021-03-18] MEDS: MIDAZOLAM 2 MG/2 ML VIAL IV ONE ×2 (12:13→12:27)
[2021-03-18] MEDS ORDERED: LIDOCAINE 1% INJ 10MG/ML (20 ML MDV) SQ ONE (12:14)
[2021-03-18] MEDS ORDERED: HEPARIN SODIUM 1,000 UN/ML (10ML VL) ONE (12:22)
[2021-03-18] MEDS ORDERED: VERAPAMIL SYRINGE (5 MG/10 ML) INTRAARTER ONE (12:24)
[2021-03-18] MEDS ORDERED: IOPAMIDOL-370 125ML BTL INJ ONE (12:34)
[2021-03-18] MEDS ORDERED: RX INFO: IV CONTRAST WAS GIVEN 1 EACH MISC MISCELLANE PRN (12:40)
[2021-03-18] MEDS ORDERED: SODIUM CHLORIDE 0.9% 1,000 ML IV SCH (12:45)
--- NOTE | 2021-03-18 12:45 | P.CARDCATH ---
Date of Procedure: 03/18/21 Preoperative Diagnosis: Positive stress test chest pain Postoperative Diagnosis: Normal coronary arteries Procedure(s) Performed: Left heart catheterization without left ventriculography Description of Procedure: HISTORY: This is a 51-year-old female with history of permanent pacemaker implantation who has been experiencing chest pains. A stress test was size to possible ischemia in the anterior wall. She was advised to have cardiac catheterization to rule out underlying ischemic heart disease. Patient was referred by Dr. Gallegos CONSENT: Dr. Gallegos discussed the risks, benefits and alternative therapies for the above-mentioned procedure and for both sedation/analgesia as well as necessary blood product administration, if indicated, as they pertain to this patient. The patient has indicated understanding and acceptance of the risks and procedures discussed. PROCEDURE: Patient was brought to the lab in a fasting state. Patient was given some IV sedation. The right wrist is infiltrated with lidocaine and right femoral artery was entered using Seldinger technique. A 6-Latvian catheter was left in place and selective coronary arteriography was performed. Patient tolerated the procedure well. TR band was applied for hemostasis. No immediate complications were noted and patient was transferred to [facility] in a stable condition Conscious Sedation: Versed 2mg Fentanyl 50 g Duration 20minutes HEMODYNAMICS: The aortic pressure is 110/70. Left ventricle end-diastolic pressure was not measured SELECTIVE CORONARY ARTERIOGRAPHY: LEFT MAIN: Normal length and free of occlusive disease THE LEFT ANTERIOR DESCENDING CORONARY ARTERY: . Good caliber vessel and free of any occlusive disease THE LEFT CIRCUMFLEX AND IS CORONARY ARTERY: . Nondominant vessel free of occlusive disease THE RIGHT CORONARY ARTERY: And vessel free of occlusive disease LEFT VENTRICULOGRAPHY: . Performed FINAL IMPRESSION: Normal coronary arteries PLAN: Maximum medical therapy and risk factor modification PROGNOSIS: Good
[2021-03-18 13:13] VITALS: RESP 14
[2021-03-18 16:17] VITALS: BP 112/64; PULSE 74
== END 2021-03-18 16:17 | disposition home or self-care (01) ==
LOC: CATHCVL 09:20
PROVIDERS: ATTEND Internal Medicine Cardiovascular Disease
DX: I25.10 Atherosclerotic heart disease of native coronary artery without angina pectoris (principal); Z20.822 Contact with and (suspected) exposure to COVID-19
CPT/HCPCS: 93454; 80048; 85025; 87635; C1894; J2250; J2001; J3010; J1644; Q9967

== ENCOUNTER → 2022-02-05 | Outpatient (CLI) | payer MEDICARE, OTHER ==
--- NOTE | 2022-02-06 07:46 | MM ---
Reason for Exam: Screening (asymptomatic). Last mammogram was performed 3 year(s) and 3 month(s) ago. Patient History: Menarche at age 11. First Full-Term at age 24. Postmenopausal. Last menstrual period: 09/03/2018 Risk Values: Yamileth 5 year model risk: 1.2%. NCI Lifetime model risk: 9.4%. Prior Study Comparison: 10/09/2015 Screening Mammogram, [facility]. 03/18/2017 Bilateral Screening Mammogram, [facility]. 11/08/2018 Bilateral Screening Mammogram, [facility]. Tissue Density: There are scattered fibroglandular densities. Findings: Analyzed By CAD. There is no suspicious group of microcalcifications or new suspicious mass in either breast. Overall Assessment: Negative, BI-RAD 1 Management: Screening Mammogram of both breasts in 1 year. A clinical breast exam by your physician is recommended on an annual basis and results should be correlated with mammographic findings. Electronically signed and approved by: En Brewer M.D. Radiologis
== END | disposition home or self-care (01) ==
LOC: RADMAMWWP 14:26
PROVIDERS: ATTEND Internal Medicine
DX: Z12.31 Encounter for screening mammogram for malignant neoplasm of breast (principal); Z78.0 Asymptomatic menopausal state
CPT/HCPCS: 77063; 77067

== ENCOUNTER 2022-02-24 23:38 | Emergency (ER) | payer MEDICARE, OTHER ==
[2022-02-24 23:45] VITALS: BP 120/87; PULSE 88; RESP 18; TEMP 97.7
[2022-02-25] MEDS ORDERED: CYCLOBENZAPRINE 10 MG TAB PO STA (00:11)
[2022-02-25] MEDS ORDERED: KETOROLAC 15 MG/ML 1 ML VIAL IM STA (00:11)
[2022-02-25] MEDS ORDERED: ACETAMINOPHEN TAB 500 MG TAB PO STA (00:12)
--- NOTE | 2022-02-25 00:33 | ED ---
Back Pain HPI - General Chief Complaint: Back Pain/Injury Stated Complaint: Back Pain Time Seen by Provider: 02/24/22 23:56 Source: patient, RN notes reviewed - History of Present Illness Initial Comments: This is a pleasant 52-year-old female who presents emergency department complaining of low back pain which has been going on for about 2 months. Patient denies any positive bowel Jerri urination but states the pain intermittently radiates down both legs, in fact, she states mostly the left leg. She states is exacerbated by standing at work. Patient works at [employer] and has to be on her feet continuously. patient denies fever or chills. No numbness in the saddle region. Patient is able to ambulate. No headache, no fever or chills, no changes in vision or hearing, no sore throat or difficulty with speech, no neck pain, no chest pain or shortness of breath, no abdominal pain, no nausea or vomiting, no changes in urination or bowel movements, no numbness or tingling, no extremity pain, no skin rashes or lesions. Past medical, surgical, social, and family history reviewed. - Related Data Home Medications Medication Instructions Recorded Confirmed Pantoprazole Sodium 40 mg PO QAM 06/30/14 03/18/21 levETIRAcetam [Keppra] 1,000 mg PO BID 06/30/14 03/18/21 Rosuvastatin [Crestor] 10 mg PO DAILY 08/10/20 03/18/21 Triamcinolone Acetonide [Nasacort] 1 spray EA NOSTRIL DAILY PRN 01/05/21 03/18/21 Venlafaxine HCl ER [Effexor XR] 150 mg PO QAM 01/05/21 03/18/21 Previous Rx's Medication Instructions Recorded Aspirin 81 mg PO DAILY chew 01/06/21 Acetaminophen Tab [Tylenol Tab] 500 mg PO Q6H PRN #24 tablet 02/25/22 Cyclobenzaprine [Flexeril] 10 mg PO TID PRN #20 tab 02/25/22 methylPREDNISolone Dose Pack 4 mg PO DIRECTED #21 tab 02/25/22 [Medrol Dose Pack] Allergies Allergy/AdvReac Type Severity Reaction Status Date / Time Penicillins Allergy Severe Rash/Hives Verified 02/24/22 23:45 pollen extracts Allergy SNEEZING Verified 02/24/22 23:45 Review of Systems ROS Statement: Those systems with pertinent positive or pertinent negative responses have been documented in the HPI. ROS Other: All systems not noted in ROS Statement are negative. Past Medical History Past Medical History: Chest Pain / Angina, Hyperlipidemia, Osteoarthritis (OA), Seizure Disorder, Sleep Apnea/CPAP/BIPAP Additional Past Medical History / Comment(s): Last seizure 09/18/09, has CPAP but not using now, Sick Sinus Syndrome requiring pacemaker. Hx ulcer 2006. Benign tumor behind left kidney. History of Any Multi-Drug Resistant Organisms: None Reported Past Surgical History: Adenoidectomy, Section, Pacemaker, Tonsillectomy, Tubal Ligation Additional Past Surgical History / Comment(s): Tilt table test, D&C, Section X4, pilonidial cyst removed. Past Anesthesia/Blood Transfusion Reactions: No Reported Reaction, Motion Sickne ss Type of Cardiac Device: Permanent Pacemaker Device Placement Date:: 07/14/06, 03/2016 Past Psychological History: Depression Smoking Status: Current every day smoker Past Alcohol Use History: None Reported Past Drug Use History: None Reported - Past Family History Father Family Medical History: Coronary Artery Disease (CAD) Additional Family Medical History / Comment(s): Father had heart problems and a pacemaker. He at age 77yrs. Mother Family Medical History: Diabetes Mellitus Additional Family Medical History / Comment(s): Mother is 73 yrs old General Exam General appearance: alert, in no apparent distress Head exam: Present: atraumatic, normocephalic, normal inspection Eye exam: Present: normal appearance, PERRL, EOMI. Absent: scleral icterus, conjunctival injection, periorbital swelling ENT exam: Present: normal exam, mucous membranes moist Neck exam: Present: normal inspection, full ROM. Absent: tenderness, meningismus, lymphadenopathy Respiratory exam: Present: normal lung sounds bilaterally. Absent: respiratory distress, wheezes, rales, rhonchi, stridor Cardiovascular Exam: Present: regular rate, normal rhythm, normal heart sounds. Absent: systolic murmur, diastolic murmur, rubs, gallop, clicks GI/Abdominal exam: Present: soft, normal bowel sounds. Absent: distended, tenderness, guarding, rebound, rigid Extremities exam: Present: normal inspection, full ROM, normal capillary refill. Absent: tenderness, pedal edema, joint swelling, calf tenderness Back exam: Present: normal inspection, tenderness, paraspinal tenderness. Absent: full ROM, CVA tenderness (R), CVA tenderness (L), muscle spasm, vertebral tenderness, rash noted Expanded Back exam: Present: normal rectal tone. Absent: saddle anesthesia Back exam: Negative Straight Leg Raising: Left, Right Neurological exam: Present: alert, oriented X3, CN II-XII intact, motor sensory deficit Psychiatric exam: Present: normal affect, normal mood Skin exam: Present: warm, dry, intact, normal color. Absent: rash, cyanosis, diaphoretic, erythema, petechiae, pallor, mottled, abrasion Course Vital Signs 02/24/22 23:39 Temperature 97.7 F Pulse Rate 88 Respiratory 18 Rate Blood Pressure 120/87 O2 Sat by Pulse 97 Oximetry - Reevaluation(s) Reevaluation #1: 02/25/22 01:11 Medical record is reviewed Symptoms are improved here in the emergency department Patient is informed of results and questions answered Patient in no distress Medical Decision Making - Medical Decision Making -There are no red flags for concerning back pathology. Specifically: -No history of cancer, this is not a mass effect, MRI not indicated. -No anticoagulation, this is not a bleed. -No fevers, no IVDU, this is not an infectious process. -No trauma, no bony pain -With a normal neuro exam, and no urinary or bowel retention or incontinence, there is no clinical sign of motor defect or cauda equina - MRI is not indicated at this point. -No pulsating abdominal mass or risk factors for AAA. -Pain is relieved with rest, which is also less concerning. -I do not believe that x-rays or emergent MRI is indicated at this time. -We will treat symptomatically and discharge home with follow up instructions. -Stretching/strengthening exercise given to patient and they will be referred to physical therapy -Patient is instructed to use [id number] analgesics as directed on packaging for pain. X-rays indicated as the patient has had back pain for 2 months with no previous imaging. Patient also over 50 years old Plan he'll x-ray of the lumbar spine shows mild degenerative changes. The case was discussed in detail with ED attending physician. Presentation, findings, treatment plan discussed in detail. Patient was told to return to the ER for any signs or symptoms worsen. Told to return immediately if any other problems arise. All questions answered. Treatment plan discussed. Patient in agreement Every effort has been made to ensure accuracy of this dictation. However, due to the limitations of electronic medical records and dictation devices, errors in charting still occur. Ethylbenzene Oxidizer Dr. Singleton - Radiology Data Radiology results: report reviewed, image reviewed Disposition Clinical Impression: Low back pain, Left lumbar radiculopathy Disposition: HOME SELF-CARE Condition: Good Instructions (If sedation given, give patient instructions): Acute Low Back Pain (ED) Prescriptions: Cyclobenzaprine [Flexeril] 10 mg PO TID PRN #20 tab PRN Reason: Spasms methylPREDNISolone Dose Pack [Medrol Dose Pack] 4 mg PO DIRECTED #21 tab Acetaminophen Tab [Tylenol Tab] 500 mg PO Q6H PRN #24 tablet PRN Reason: Pain Is patient prescribed a controlled substance at d/c from ED?: No Referrals: Latesha Cedillo MD [Primary Care Provider] - 1-2 days Love Dyer MD [Family Provider] - 02/27/22 Time of Disposition: 01:12
--- NOTE | 2022-02-25 01:04 | XR ---
EXAMINATION TYPE: XR lumbosacral spine min 4V DATE OF EXAM: 02/25/2022 COMPARISON: NONE HISTORY: Pain TECHNIQUE: 5 views FINDINGS: Lumbar vertebra have fairly normal alignment. No significant disc space narrowing. Minimal anterior spurring is seen in the lower lumbar spine. Posterior elements are intact. Sacroiliac joints are intact. No compression fracture. IMPRESSION: Mild degenerative spurring. No fracture seen.
== END 2022-02-25 01:20 | disposition home or self-care (01) ==
LOC: EC 23:38
DX: M54.16 Radiculopathy, lumbar region (principal); E78.5 Hyperlipidemia, unspecified; F17.200 Nicotine dependence, unspecified, uncomplicated; Z88.0 Allergy status to penicillin; Z91.048 Other nonmedicinal substance allergy status; Z99.89 Dependence on other enabling machines and devices; Z79.899 Other long term (current) drug therapy
CPT/HCPCS: 99283 ×2; 96372 ×2; 72110; J1885

== ENCOUNTER → 2022-03-05 | Outpatient (CLI) | payer MEDICARE, OTHER ==
--- NOTE | 2022-03-05 09:00 | CT ---
EXAMINATION TYPE: CT lumbar spine wo con CT DLP: 876.2 mGycm, Automated exposure control for dose reduction was used. DATE OF EXAM: 03/05/2022 8:28 AM COMPARISON: Lumbosacral spine radiograph 02/25/2022, CT lumbar spine 05/30/2020. CLINICAL INDICATION:Female, 52 years old with history of M54.5 low back pain; TECHNIQUE: Multiple axial images were obtained from the midportion of T11 through the sacroiliac armando nts. Soft tissue and bone windows in coronal and sagittal planes were obtained and reviewed. FINDINGS: Alignment: There are 5 lumbar type vertebral bodies within normal alignment. Mild spurring of the end plates. Bilateral L5 spondylolysis without spondylolisthesis redemonstrated. No paraspinal masses. Bone: No evidence of fracture is identified. Discs: T12-L1: No spinal canal or neural foraminal stenosis is identified. L1-L2: No spinal canal or neural foraminal stenosis is identified. L2-L3: No spinal canal or neural foraminal stenosis is identified. L3-L4: Broad-based disc bulge with mild effacement of anterior thecal sac. No neural foraminal stenos is. L4-L5: Broad-based disc bulge with mild effacement of anterior thecal sac. No neural foraminal steno sis. L5-S1: Broad-based disc bulge with possible small central disc herniation. There is mild effacement o f anterior thecal sac. No neural foraminal stenosis. Other: Stable left adrenal low density mass measuring 3.8 x 2.8 cm with a Hounsfield unit of -6 consi stent with a lipid rich benign adrenal adenoma. Nonobstructive bilateral renal calculi demonstrated w ith largest in the inferior pole of the left kidney measuring up to 4 mm. IMPRESSION: 1. No evidence of fracture of the lumbar spine. 2. Multilevel degenerative disease from L3 to S1 with possible small central disc herniation at L5-S1 . This can be further evaluated with MRI lumbar spine. 3. Redemonstration of L5 spondylolysis without spondylolisthesis. 4. Nonobstructive bilateral renal calculi. 5. Stable left adrenal 3.8 cm mass consistent with benign lipid rich adenoma.
== END | disposition home or self-care (01) ==
LOC: RADCTMAIN 08:11
PROVIDERS: ATTEND Internal Medicine
DX: M51.36 Other intervertebral disc degeneration, lumbar region (principal); M51.27 Other intervertebral disc displacement, lumbosacral region; M47.816 Spondylosis without myelopathy or radiculopathy, lumbar region; N20.0 Calculus of kidney; E27.8 Other specified disorders of adrenal gland
CPT/HCPCS: 72131

== ENCOUNTER → 2022-07-30 | Outpatient (CLI) | payer MEDICARE, OTHER ==
--- NOTE | 2022-07-30 10:26 | US ---
EXAMINATION TYPE: US abdomen complete DATE OF EXAM: 07/30/2022 COMPARISON: NONE CLINICAL HISTORY: R11.10 VOMITING. Nausea and vomiting every weekend for months TECHNIQUE: Multiple sonographic images of the abdomen are obtained. FINDINGS: EXAM MEASUREMENTS: Liver Length: 15.2 cm Gallbladder Wall: 0.2 cm CBD: 0.5 cm Spleen: 10.6 cm Right Kidney: 10.5 x 4.7 x 5.2cm Left Kidney: 11.5 x 3.8 x 5.4 cm PROSTHETIC DENTIST NOTES: habitus and bowel gas limits study Pancreas: wnl Liver: left lobe cyst = 1.8 x 1.6 x 1.1cm Gallbladder: wnl Evidence for sonographic Ramon's sign: no CBD: wnl Spleen: wnl Right Kidney: wnl Left Kidney: wnl Upper IVC: wnl Abd Aorta: wnl The liver is homogenous. The intrahepatic portion of the IVC and proximal abdominal aorta are within normal limits. There is no evidence of cholelithiasis. Common bile duct is unremarkable. The visu alized portions of the pancreas are homogenous. The spleen is unremarkable. Kidneys are symmetric a nd free of hydronephrosis. No renal lesions are seen. IMPRESSION: No evidence for acute process.
== END | disposition home or self-care (01) ==
LOC: RADUSWWP 09:27
PROVIDERS: ATTEND Internal Medicine
DX: R10.84 Generalized abdominal pain (principal); R11.2 Nausea with vomiting, unspecified
CPT/HCPCS: 76700

== ENCOUNTER → 2022-09-29 | Outpatient (CLI) | payer MEDICARE, OTHER ==
[2022-09-29 16:24] LABS: Basophils # (A) 0.04 X 10*3/uL (0.00-0.10); Basophils % (A) 0.6 %; Eosinophils # (A) 0.06 X 10*3/uL (0.04-0.35); Eosinophils % (A) 0.8 %; HCT 44.2 % (37.2-46.3); Immature Grans, Automated 0.3 %; Lymphocytes # (A) 2.16 X 10*3/uL (0.90-5.00); Lymphocytes % (A) 30.2 %; MCH 29.1 pg (27.0-32.0); MCHC 31.7 g/dL (32.0-37.0); MCV 91.9 fL (80.0-97.0); Mean Platelet Volume 9.3 fL (9.5-12.2); Monocytes # (A) 0.42 X 10*3/uL (0.20-1.00); Monocytes % (A) 5.9 %; NRBC Per 100 WBC 0 /100 WBCS (0.0-0.0); Neutrophils # (A) 4.46 X 10*3/uL (1.80-7.70); Neutrophils % (A) 62.2 %; Platelet Count 281 X 10*3/uL (140-440); RBC 4.81 X 10*6/uL (4.10-5.20); RDW 13.5 % (11.5-14.5); WBC 7.16 X 10*3/uL (4.50-10.00)
[2022-09-29 16:40] LABS: ALT 18 U/L (8-44); AST 19 U/L (13-35); African American GFR (CKD) 120.6 (60.0-200.0); Albumin 4.1 g/dL (3.8-4.9); Albumin/Globulin Ratio 1.58 (1.60-3.17); Alkaline Phosphatase 100 U/L (41-126); BUN/Creat Ratio 25.33 Ratio (12.00-20.00); Blood Urea Nitrogen 15.2 mg/dL (9.0-27.0); Carbon Dioxide 28.8 mmol/L (20.0-27.5); Chloride 104 mmol/L (96-109); Chol/HDL Ratio 2.73 Ratio; Globulin 2.6 g/dL (1.6-3.3); Glucose 95 mg/dL (70-110); LDL Cholesterol,Calculated 99.6 mg/dL (0.0-131.0); Non-African American GFR(CKD) 104.1 (60.0-200.0); Potassium 4.5 mmol/L (3.5-5.5); Sodium 143 mmol/L (135-145); Total Bilirubin <0.15 mg/dL (0.30-1.20); Total Protein 6.8 g/dL (6.2-8.2)
== END | disposition home or self-care (01) ==
LOC: LABWHC1 09:23
PROVIDERS: ATTEND Family Medicine
DX: E27.8 Other specified disorders of adrenal gland (principal); Z95.0 Presence of cardiac pacemaker
CPT/HCPCS: 36415; 80053; 80061; 84439; 84443; 85025

== ENCOUNTER → 2023-05-26 | Outpatient (CLI) | payer MEDICARE, OTHER ==
[2023-05-26 08:56] LABS: African American GFR (CKD) >90 (>60 ml/min/1.73 sqM); Blood Urea Nitrogen 18 mg/dL (7-17); Non-African American GFR(CKD) >90 (>60 ml/min/1.73 sqM)
[2023-06-01 22:39] LABS: Metanephrine, Free <25 pg/mL (< OR = 57); Normetanephrine, Free 58 pg/mL (< OR = 148); Total, Free (MN + NMN) 58 pg/mL (< OR = 205)
--- NOTE | 2023-06-02 10:12 | CT ---
EXAMINATION TYPE: CT adrenal glands wo/w con CT DLP: 2002.3 mGycm, Automated exposure control for dose reduction was used. DATE OF EXAM: 05/26/2023 9:20 AM COMPARISON: CT abdomen pelvis with contrast 08/10/2020, CT lumbar spine without contrast 03/05/2022 CLINICAL INDICATION:Female, 53 years old with history of D35.00 NEOPLASM OF UNSPECIFIED ADRENAL GLAND ; adrenal mass f/u TECHNIQUE: Axial CT of the adrenal glands. Noncontrast Sagittal and coronal reformats were created o n a separate workstation. Contrast used:100 mL of Isovue 300 with IV Contrast, (none if empty) Oral contrast used: with Oral Contrast (none if empty) FINDINGS: LOWER CHEST: Mild emphysematous change in the right lower lobe. No infiltrate or effusion. Heart size upper limits of normal. Distal ends of pacemaker leads in the right heart. Prominent pericardial fat without effusion seen. ABDOMEN LIVER: Stable small low-density nodules in the left and right hepatic lobes, compatible with cysts. N o hepatic mass. GALLBLADDER AND BILE DUCTS: Unremarkable gallbladder. No biliary ductal dilatation. PANCREAS: Unremarkable. SPLEEN: Unremarkable. ADRENAL GLANDS: Normal right adrenal. Ovoid 3.9 x 2.8 cm left adrenal nodule shows unenhanced attenua tion -1 Hounsfield units, appears mildly homogeneously enhancing postcontrast up to 43 Hounsfield uni ts. No significant change from the prior studies. KIDNEYS AND URETERS: There are multiple, at least 4, small calculi within the right kidney the larges t appears in the lower pole measuring 4 mm. A couple of calculi in the lower pole left kidney, the la rger 4.5 mm and the smaller 3 mm. Postcontrast the kidneys enhance normally and symmetrically. Right kidney shows a stable tiny cyst in the superior pole. No hydronephrosis bilaterally. STOMACH AND BOWEL: Contrast traverses the stomach and small bowel loops without evidence of obstructi on. Contrast is just reaching the colon. There is moderate stool throughout the colon with no acute a bnormality seen. Appendix is not visualized. PERITONEUM/RETROPERITONEUM: No evidence of pneumoperitoneum or free fluid. VASCULATURE: Aorta and major branches are grossly unremarkable. No AAA. Portal veins are enhancing. Splenic vein is patent. LYMPH NODES: No gross evidence for lymphadenopathy. SOFT TISSUE/ABDOMINAL WALL: Unremarkable MUSCULOSKELETAL: No acute osseous abnormalities. Mild disc degeneration changes are present throughou t the thoracolumbar spine. IMPRESSION: Continued stable left adrenal nodule with features of benign lipid rich adenoma.
== END | disposition home or self-care (01) ==
LOC: RADCTMAIN 07:35
PROVIDERS: ATTEND Urology
DX: D35.00 Benign neoplasm of unspecified adrenal gland (principal)
CPT/HCPCS: 83835; 82533; 82565; 84520; 36415; 74170; Q9967

== ENCOUNTER → 2023-06-03 | Outpatient (CLI) | payer MEDICARE, OTHER | END | disposition home or self-care (01) | LOC: LABWHC1 08:14 | PROVIDERS: ATTEND Urology | DX: D35.00 Benign neoplasm of unspecified adrenal gland (principal) | CPT/HCPCS: 36415; 82533 ==

== ENCOUNTER → 2023-06-29 | Outpatient (CLI) | payer MEDICARE, OTHER ==
--- NOTE | 2023-06-30 14:28 | CTL ---
EXAMINATION TYPE: CT Low Dose Lung DATE OF EXAM ORDERED: 06/29/2023 HISTORY: Tobacco abuse. Lung cancer screening CT DLP: 135.[address] CTDI: 3.9 mGy Automated exposure control for dose reduction was used. SCREENING VISIT: Initial COMPARISON: None TECHNIQUE: Low dose computed tomography scan was performed through the chest at 1 mm thick sections a nd reconstructed images in the coronal plane at [address] DIAGNOSTIC QUALITY: Satisfactory FINDINGS: LUNG NODULES: Present, detailed below: 1. There is a 0.4 cm peripheral right upper lung field nodule. Series 4 image 92. 2. There is a 0.3 cm nodule in the periphery right midlung. Series 4 image 127. LUNGS: COPD: Severity: None Fibrosis: Severity: None Lymph nodes: None Other findings: None RIGHT PLEURAL SPACE: Effusion: None Calcification: None Thickening: None Pneumothorax: None LEFT PLEURAL SPACE: Effusion: None Calcification: None Thickening: None Pneumothorax: None HEART: Heart Size: Normal Coronary calcification: None Pericardial effusion: None OTHER FINDINGS: Upper abdomen: Normal Bony thorax: Normal Supraclavicular region: Normal Other: Ascending thoracic aorta at the level the main pulmonary artery measures 3.3 cm. The main pul monary artery at the bifurcation measures 2.4 cm. IMPRESSION: 1. Couple of tiny nodules. Follow-up exam in one year is recommended. FOLLOW UP CT CHEST RECOMMENDATION: Follow-up low-dose CT chest [address] LUNG RAD: Lung-Rad 2 Benign Appearance or Behavior
== END | disposition home or self-care (01) ==
LOC: RADCTMAIN 12:09
PROVIDERS: ATTEND Family Medicine
DX: Z12.2 Encounter for screening for malignant neoplasm of respiratory organs (principal); R91.1 Solitary pulmonary nodule; F17.200 Nicotine dependence, unspecified, uncomplicated
CPT/HCPCS: 71271

== ENCOUNTER → 2023-10-19 | Outpatient (CLI) | payer MEDICARE ==
[2023-10-19 15:11] LABS: Basophils # (A) 0.04 X 10*3/uL (0.00-0.10); Basophils % (A) 0.7 %; Eosinophils # (A) 0.06 X 10*3/uL (0.04-0.35); Eosinophils % (A) 1.1 %; Lymphocytes # (A) 1.79 X 10*3/uL (0.90-5.00); Lymphocytes % (A) 32.4 %; MCH 28.8 pg (27.0-32.0); MCHC 31.8 g/dL (32.0-37.0); MCV 90.5 FL (80.0-97.0); Mean Platelet Volume 9.3 FL (9.5-12.2); Monocytes # (A) 0.31 X 10*3/uL (0.20-1.00); Monocytes % (A) 5.6 %; NRBC Per 100 WBC 0 X 10*3/uL (0.00-0.01); Neutrophils # (A) 3.32 X 10*3/uL (1.80-7.70); Platelet Count 271 X 10*3/uL (140-440); RBC 4.86 X 10*6/uL (4.10-5.60); WBC 5.53 X 10*3/uL (4.50-10.00)
[2023-10-19 15:33] LABS: ALT 16 U/L (8-49); AST 21 U/L (13-35); Albumin 4.2 g/dL (3.8-4.9); Albumin/Globulin Ratio 1.56 Ratio (1.60-3.17); Alkaline Phosphatase 111 U/L (41-126); BUN/Creat Ratio 22.43 Ratio (12.00-20.00); Blood Urea Nitrogen 15.7 mg/dL (9.0-27.0); Calcium 9.7 mg/dL (8.7-10.3); Carbon Dioxide 25.8 mmol/L (21.6-31.8); Chloride 106 mmol/L (96-109); Chol/HDL Ratio 2.67 Ratio; Globulin 2.7 g/dL (1.6-3.3); Glucose 113 mg/dL (70-110); LDL Cholesterol,Calculated 68.7 mg/dL (0.0-131.0); Potassium 4.3 mmol/L (3.5-5.5); Sodium 144 mmol/L (135-145); Total Bilirubin <0.2 mg/dL (0.3-1.2); Total Protein 6.9 g/dL (6.2-8.2)
== END | disposition home or self-care (01) ==
LOC: LABWHC1 09:41
PROVIDERS: ATTEND Family Medicine
DX: M46.96 Unspecified inflammatory spondylopathy, lumbar region (principal)
CPT/HCPCS: 29075; 36415; 73100; 80053; 80061; 84443; 85025

== ENCOUNTER → 2023-10-26 | Outpatient (CLI) | payer MEDICARE ==
--- NOTE | 2023-10-29 12:09 | CT ---
EXAMINATION TYPE: CT lumbar spine wo con CT DLP: 2065 mGycm, Automated exposure control for dose reduction was used. DATE OF EXAM: 10/26/2023 3:19 PM COMPARISON: None.. CLINICAL INDICATION:Female, 53 years old with history of M47.816 spondylosis; [facility], TECHNIQUE: CT of the lumbar spine was performed without contrast. Multiplanar soft tissue and bone windows were obtained and reviewed. . Contrast used: None FINDINGS: Exam is limited by the patient's large body habitus. Alignment: There are 5 lumbar type vertebral bodies with normal heights and alignment. Bone: No evidence of fracture is identified. No destructive bone lesion. There is mild/moderate mult ilevel disc osteophyte complexes and facet arthropathy, which results in the below findings unless ot herwise noted. Discs: T12-L1: No significant spinal canal or neural foraminal stenosis. L1-L2: No spinal canal or neural foraminal stenosis is identified. L2-L3: No spinal canal or neural foraminal stenosis is identified. L3-L4: Mild spinal canal and neural foraminal stenoses. L4-L5: Mild to moderate spinal canal and neural foraminal stenoses. L5-S1: Mild to moderate spinal canal and neural foraminal stenosis is identified. Other: Partially redemonstrated left adrenal nodule with features of adenoma, unchanged. A few puncta te nonobstructing calculi in the bilateral kidneys. IMPRESSION: 1. No acute fracture or traumatic malalignment in the lumbar spine. 2. Mild/moderate lumbar spondylosis as above.
--- NOTE | 2023-10-29 12:26 | CT ---
EXAMINATION TYPE: CT hip LT wo con DATE OF EXAM: 10/26/2023 3:19 PM COMPARISON: None. CLINICAL INDICATION:Female, 53 years old with history of M25.552 L hip pain; [facility], TECHNIQUE: Noncontrast CT was obtained of the left hip. Axial coronal and sagittal reformatted image s, soft tissue and bone window were submitted for review. 3-D reconstruction was created on a [employer] workstation. Contrast used: mL of , Oral contrast used: None CT DLP: 2065 mGycm, Automated exposure control for dose reduction was used. FINDINGS: Please note the exam includes the left hip only, and does not include the entire pelvis. On field scout vie w however the pelvis appears symmetric and grossly intact as seen. Bone: Osseous structures appear normally mineralized. There is no evidence of lytic/blastic lesion. SI join t shows mild degenerative change. Left pelvis appears within normal limits, save for mild degenerativ e change of the femoral acetabular joint. The hip joint is maintained, without evidence of acute frac ture or dislocation. Small sclerotic densities in the proximal femur likely relate to bone islands. N o aggressive periostitis. Soft tissues: Soft tissues are unremarkable. No focal fluid collection, soft tissue gas, or radiopaque foreign body is seen. Other: No additional significant finding. IMPRESSION: No acute CT abnormality of the left hip.
== END | disposition home or self-care (01) ==
LOC: RADCTMAIN 12:40
PROVIDERS: ATTEND Psychiatry & Neurology Neurology
DX: M47.816 Spondylosis without myelopathy or radiculopathy, lumbar region (principal); M16.12 Unilateral primary osteoarthritis, left hip
CPT/HCPCS: 72131

== ENCOUNTER → 2024-05-18 | Outpatient (CLI) | payer MEDICARE ==
--- NOTE | 2024-05-18 16:42 | MM ---
Reason for Exam: Screening (asymptomatic). Last mammogram was performed 1 year(s) and 4 month(s) ago. Patient History: Menarche at age 11. First Full-Term at age 24. Postmenopausal. Patient has history of breast feeding. Risk Values: Yamileth 5 year model risk: 1.3%. NCI Lifetime model risk: 9.1%. Prior Study Comparison: 11/08/2018 Bilateral Screening Mammogram, [facility]. 02/05/2022 Bilateral MG 3D screening mammo w/cad, [facility]. 02/08/2023 Bilateral MG 3D screening mammo w/cad, [facility]. Tissue Density: There are scattered areas of fibroglandular density. Findings: Analyzed By CAD. The pattern is symmetrical. No significant interval change No suspicious groups of microcalcifications, spiculated or lobular masses, architectural distortion or other secondary signs of malignancy are mammographically apparent. Overall Assessment: Benign, BI-RAD 2 Management: Screening Mammogram of both breasts in 1 year. A negative mammogram report should not preclude additional follow up of suspicious palpable abnormalities. Patient should continue monthly self breast exam. A clinical breast exam by your physician is recommended on an annual basis and results should be correlated with mammographic findings. Note on Yamileth scores and lifetime risk: 1. A Yamileth score greater than 3% is considered moderate risk. If this is the case, consider specialist referral to assess eligibility for a risk reducing agent. 2. If overall lifetime risk for the development of breast cancer is 20% or higher, the patient may qualify for future screening with alternating mammogram and breast MRI. [facility], , 05/18/2024 4:39 PM. Electronically signed and approved by: Michael Joseph D.O. Radiologis
== END | disposition home or self-care (01) ==
LOC: RADMAMWWP 13:53
PROVIDERS: ATTEND Family Medicine
DX: Z12.31 Encounter for screening mammogram for malignant neoplasm of breast (principal); R92.323 Mammographic fibroglandular density, bilateral breasts; Z78.0 Asymptomatic menopausal state
CPT/HCPCS: 77063; 77067